=== PATIENT | female | born 1935 | race Caucasian/White ===

== ENCOUNTER → 2017-02-19 | Outpatient (CLI) | payer OTHER ==
[2017-02-19 16:49] LABS: BASO % 0.5 %; BASO ABS # 0.02 K/uL (0-0.2); COMPLETE YES; EOS % 1.9 %; HEMATOCRIT 40.1 % (37-47); IG% 0.2 %; LYMPH % 32.7 %; LYMPH ABS # 1.36 K/uL (1.2-3.4); MEAN CELL VOLUME 93.7 fL (80-100); MEAN CORPUSCULAR HEMOGLOBIN 31.5 pg (25-34); MEAN CORPUSCULAR HGB CONC 33.7 g/dl (32-36); MEAN PLATELET VOLUME 11.4 fL (7.4-10.4); MONO % 7.5 %; NEUT % 57.2 %; PLATELET COUNT 131 K/uL (130-400); RED BLOOD COUNT 4.28 M/uL (4.2-5.4); WHITE BLOOD COUNT 4.16 K/uL (4.8-10.8)
[2017-02-19 17:11] LABS: ALT/SGPT 11 U/L (12-78); AST/SGOT 13 U/L (15-37); BLOOD UREA NITROGEN 22 mg/dl (7-18); BUN/CREATININE RATIO 27.7 (10-20); CALCIUM 8.6 mg/dl (8.5-10.1); CARBON DIOXIDE 26 mmol/L (21-32); CHLORIDE 107 mmol/L (98-107); CREATININE 0.81 mg/dl (0.60-1.20); GLUCOSE 91 mg/dl (70-99); POTASSIUM 3.7 mmol/L (3.5-5.1); SODIUM 143 mmol/L (136-145)
[2017-02-19 17:21] LABS: ALB/GLOB RATIO 1.2 (0.9-2); ALKALINE PHOSPHATASE 65 U/L (45-117)
--- NOTE | 2017-02-25 08:47 | CODING QUERY MEDICAL NECESSITY ---
SUPPORTING DIAGNOSIS NEEDED A supporting diagnosis is required for the test/procedure performed on this patient in order for us to be reimbursed by the patient's insurance. Please provide a supporting diagnosis for the following test/procedure listed below next to the test name along with your signature. *If there is no additional diagnosis for this patient that would support the following test/procedure please document that below next to the test/procedure. Test(s)/Procedure(s) that require a supporting diagnosis: * VITAMIN D, 25-HYDROXY DIAGNOSIS: Provider Signature: Date: Thank you Petra Fuller [employer] Once completed, please kindly fax back to [phone] For questions please call [phone]
== END | disposition home or self-care (01) ==
LOC: C.LABBC 12:37
PROVIDERS: ATTEND Internal Medicine
DX: E03.9 Hypothyroidism, unspecified (principal); E55.9 Vitamin D deficiency, unspecified

== ENCOUNTER 2018-10-14 23:16 | Inpatient (IN) ==
[2018-10-15 00:02] LABS: Basophils # (auto) 0.01 K/uL (0-0.2); Basophils % (auto) 0.2 %; Eosinophils # (auto) 0.05 K/uL (0-0.5); Eosinophils % (auto) 0.8 %; Hematocrit (blood only) 36.8 % (37-47); Hemoglobin 12.8 g/dL (12.0-16.0); Immature Granulocytes # (auto) 0.01 K/uL (0.00-0.02); Immature Granulocytes % (auto) 0.2 %; Mean Corpuscular Hgb Conc 34.8 g/dL (32-36); Mean Corpuscular Volume 90.2 fL (80-100); Mean Platelet Volume 10.8 fL (7.4-10.4); Monocytes # (auto) 0.82 K/uL (0.11-0.59); Monocytes % (auto) 13.5 %; Neutrophils % (auto) 62.3 %; Platelet Count 117 K/uL (130-400); RDW Coefficient of Variation 13.1 % (11.5-14.5); RDW Standard Deviation 43.2 fL (36.4-46.3); Red Blood Count 4.08 M/uL (4.2-5.4); White Blood Count 6.09 K/uL (4.8-10.8)
[2018-10-15 00:09] LABS: INR 1.1 (0.9-1.1); Prothrombin Time 10.7 Seconds (9.0-12.0)
[2018-10-15 00:19] LABS: BUN Creatinine Ratio 26.3 (10-20); Calcium 8.7 mg/dl (8.5-10.1); Creatinine Clr Calc Pharmacy 33.3 ml/min; Est GFR (African American) 66.7; Est GFR (Non-African American) 57.6; Potassium 3.7 mmol/L (3.5-5.1)
[2018-10-15] MEDS ORDERED: Heparin IV Standard *NO* Bolus IV ONE ×2 (01:41→04:29)
[2018-10-15] MEDS ORDERED: SODIUM CHLORIDE 0.9% 500 ML IV ONE (01:41)
[2018-10-15] MEDS ORDERED: HEPARIN STANDARD DEXTROSE 25,000 UNITS/500 ML IV SCH (01:49)
[2018-10-15] MEDS ORDERED: HEPARIN 25000 UNIT/500 ML D5W IV ONE (01:49)
--- NOTE | 2018-10-15 02:15 | History & Physical Report ---
Date of Service October 15, 2018 Assessment & Plan (1) DVT (deep venous thrombosis): [facility] 83yo F [facility] parkinson's and hypothyroid presents with extensive LLE DVT DVT: -Heparin drip started -Consult vascular surgery -NPO Parkinson disease -Continue home meds Hypothyroid -Cont home meds Constipation -close monitoring, last BM 2 days ago DVTP: heparin CODE: DNR Dispo: med/surg (2) Constipation: (3) Parkinson disease: (4) Hypothyroid: History of Present Illness Chief Complaint: DVT Primary Care Provider: Carlito Plummer MD Pt is a [facility] 83yoF [facility] parkinson's (2007) and hypothyroidism, who presents with 2 day h/o Left leg discomfort. Due to her parkinson's she spends most of her day in a recliner, however does move about the house with a walker. She noted when standing on her leg it was becoming uncomfortable, swollen, and red. She denies pain. She and family note her parkinson's has been worsening over the past several months, but she has never fallen. She lives adjacent to her son 's house; they are her main source of support. She reports that she has lost weight since her diagnosis but cannot quantify how much. She does state she probably doesn't eat well and family corroborate most of her intake is frozen meals that she heats in the microwave. Follows closely with Dr. Blanca of neurology. In ER, it was noted that she had extensive LLE DVT. She was started on a heparin drip. Allergies Allergy/AdvReac Type Severity Reaction Status Date / Time No Known Allergies Allergy Verified 10/15/18 00:57 Home Medications Home Medications Medication Instructions Recorded Confirmed Type buspirone 5 mg PO BID PRN 09/08/18 10/15/18 History cholecalciferol (vitamin D3) 1 tab PO DAILYBB 09/08/18 10/15/18 History [Vitamin D3] cyanocobalamin (vitamin B-12) 1,000 mcg PO DAILY 09/08/18 10/15/18 History [Vitamin B-12] docusate sodium [Stool Softener] 100 mg PO HS 09/08/18 10/15/18 History levothyroxine 50 mcg PO QAM 09/08/18 10/15/18 History bromfenac 1 drp OPR DAILY 10/15/18 10/15/18 History bbgmyllww-tjqiddpb-ajylwzoybc 1 tab PO QID 10/15/18 10/15/18 History prednisolone acetate 1 drp OPR DAILY 10/15/18 10/15/18 History enoxaparin [Lovenox] 80 mg SQ DAILY #8 ml 10/16/18 Rx warfarin [Coumadin] 5 mg PO DAILY #30 tab 10/16/18 Rx Past Med/Surg History Medical History Parkinson disease Hypothyroidism Anxiety Nausea and vomiting after administration of anesthetic agent WITH HYSTERECTOMY Surgical History History of hysterectomy History of cataract surgery LEFT History of appendectomy Family History Other Family history non-contributory Social History Current Living Situation: Alone Current Living Situation Comment: APARTMENT ATTACHED TO SON HOME Other Information That Helps Us Care for You: No Feels Safe at Home: Yes Safety Concerns: Feels Safe At This Time Smoking Status: Never smoker Second Hand Exposure: No Hx Alcohol Use: No Hx Substance Use: No Beliefs That Will Affect Care: None Preferred Language: Beninese Review of Systems All systems reviewed & are unremarkable except as noted in HPI & below Constitutional: no fever, no body aches and no weakness Respiratory: no cough Cardiovascular: no chest pain Gastrointestinal: + constipation Musculoskeletal: + limited range of motion Integumentary: + lesions (on face) Neurologic: + generalized weakness, + tremor(s) and + abnormal movements Physical Exam 2 Vital Signs (Past 24 Hours): Last Vital Signs Temp 36.8 C 10/14/18 23:19 Pulse 78 10/15/18 00:45 Resp 16 10/15/18 00:45 BP 116/68 10/15/18 00:45 Pulse Ox 96 10/15/18 00:45 Constitutional: WD/WN, vitals as above average body habitus Eyes: PERRL, conjunctivae normal, anicteric sclerae (h/o cataracts ) ENMT: external ear and nose normal, oropharynx normal lesion on nose, chronic Neck: normal visual inspection Respiratory: normal respiratory effort, lungs clear to auscultation Cardiovascular: Rate/Rhythm: regular rate and regular rhythm Extremities: + edema (LLE) Gastrointestinal (Abdomen): normal bowel sounds, soft, nontender, no hepatosplenomegaly Skin: + lesion (noted on nose) Neurologic: PERRL, EOMI, accommodation nl, no face palsy, no dysarthria moves all extremities (no rigidity noted in upper extremities) Motor/Sensory : + tremor (of RLE) Psychiatric: Orientation: alert and oriented x 3 Affect: euthymic affect Insight: good insight Results & Data Laboratory Results 10/14/18 10/14/18 10/14/18 Range/Units 23:50 23:50 23:50 WBC 6.09 (4.8-10.8) K/uL RBC 4.08 L (4.2-5.4) M/uL Hgb 12.8 (12.0-16.0) g/dL Hct 36.8 L (37-47) % MCV 90.2 (80-100) fL MCH 31.4 (25-34) pg MCHC 34.8 (32-36) g/dL RDW Std Deviation 43.2 (36.4-46.3) fL RDW Coeff of Isaias 13.1 (11.5-14.5) % Plt Count 117 L (130-400) K/uL MPV 10.8 H (7.4-10.4) fL Immature Gran % (Auto) 0.2 % Neut % (Auto) 62.3 % Lymph % (Auto) 23.0 % Conway % (Auto) 13.5 % Eos % (Auto) 0.8 % Baso % (Auto) 0.2 % Immature Gran # (Auto) 0.01 (0.00-0.02) K/uL Neut # (Auto) 3.80 (1.4-6.5) K/uL Lymph # (Auto) 1.40 (1.2-3.4) K/uL Conway # (Auto) 0.82 H (0.11-0.59) K/uL Eos # (Auto) 0.05 (0-0.5) K/uL Baso # (Auto) 0.01 (0-0.2) K/uL PT 10.7 (9.0-12.0) Seconds INR 1.1 (0.9-1.1) Sodium 138 (136-145) mmol/L Potassium 3.7 (3.5-5.1) mmol/L Chloride 106 (98-107) mmol/L Carbon Dioxide 26 (21-32) mmol/L Anion Gap 6.0 (3-11) BUN 24 H (7-18) mg/dl Creatinine 0.92 (0.6-1.2) mg/dl Est Cr Clr Drug Dosing 33.3 ml/min Est GFR ( Amer) 66.7 Est GFR (Non-Af Amer) 57.6 BUN/Creatinine Ratio 26.3 H (10-20) Glucose 110 H (70-99) mg/dl Calcium 8.7 (8.5-10.1) mg/dl Medications Administered Current Inpatient Medications Heparin Sodium/Dextrose (Heparin Sodium/Dextrose) 25,000 units in 500 mls @ 18 mls/hr IV .Q24H [facility]; Protocol Stop: 11/14/18 01:48 Last Admin: 10/15/18 02:15 Dose: 900 units/hr, 18 mls/hr Code Status & VTE Plan Code Status DNR VTE Prophylaxis Plan VTE Prophylaxis will be ordered: Yes Supervising Physician Co-Signing Physician Notes Patient seen and examined, chart reviewed, case discussed with Dr. Newman and I agree with her assessment and plan as above. Briefly, patient is an 83yo C female with history of PD, gait instability, uses a walker for ambulation presenting with acute extensive DVT of LLE. Denies CP/SOB/dizziness/Syncope On exam she is afebrile, hemodynamically stable, NAD Gen: nontoxic HEENT: NC/AT, PERRL, MMM, neck supple Heart: +S1/S2, regular, no m/r/g Lungs: CTA anteriorly Abd: +BS, soft, NT/ND Ext: warmth, redness and swelling of LLE. sensation intact. 2+ pulses Labs and images reviewed. Assessment/Plan: Heparin gtt for now. Will have patient evaluated by Vascular Surgery tomorrow to comment if thrombectomy is appropriate in this patient. There is some risk for falls making anticoagulation risky. Remainder of plan as above Resident Activity Tracking Resident Involvement: Resident Care Provided Care Provided: [facility] Medicine _ (1) DVT (deep venous thrombosis) Affected thrombotic vein of extremity: unspecified vein of extremity Chronicity: acute DVT location: lower extremity Laterality: left Qualified Code(s): I82.402 - Acute embolism and thrombosis of unspecified deep veins of left lower extremity
[2018-10-15] MEDS ORDERED: POLYETHYLENE (MIRALAX) 17 GM PACK PO PRN (04:29)
[2018-10-15] MEDS ORDERED: ONDANSETRON INJ 2 MG/ML 2 ML VIAL IV PRN (04:29)
[2018-10-15] MEDS ORDERED: DOCUSATE SODIUM 100 MG CAP PO PRN (04:29)
[2018-10-15] MEDS ORDERED: ACETAMINOPHEN 325 MG TAB PO PRN (04:29)
--- NOTE | 2018-10-15 05:21 | Emergency Department Note ---
Entered by Brenda Garrison acting as a scribe for History of Present Illness General Chief complaint: Infection Stated complaint: LEFT LEG CELLULITIS Time Seen by Provider: 10/14/18 23:26 Source: patient and family (daughter) History of Present Illness Onset (ago): hour(s) (this evening) Location: lower extremity (left) Pain Consistency: + constant Maximum Pain Intensity: 0 Current Pain Intensity: 0 Quality: + other (swelling) Exacerbated By: + other (standing) Associated symptoms: + denies other symptoms (abdominal pain, difficulty urinating, change in activity level, recent trauma, and new constipation) and + other (recent weight loss); no chest pain, no nausea/vomiting and no shortness of breath The patient is an 83 year old female who presents to the Emergency Room with complaints of left lower extremity swelling that she noticed this evening. She states that the standing worsens the symptoms, noting that she feels pain in her LLE when standing for an extended period of time. The patient complains of a recent 8 pound weight loss, stating that she has not been attempting to lose weight. The patient denies any pain. She denies any CP, SOB, nausea/vomiting, abdominal pain, difficulty urinating, change in activity level, recent trauma, and new constipation. The patient's daughter, at bedside, notes that the patient has been fidgeting more the past few days. The daughter reports that the patient has an increase in Carbidopa-levadopa 2 months ago. The patient reports that she normally uses a walker to ambulate, and she denies any recent travel. She states that she has blood work drawn by her PCP in the past few weeks, because she has been feeling tired. The patient notes that the only abnormality was a low Vitamin D level. The patient's daughter reports that she has a history of Parkinson's. Home Medications Home Medications Medication Instructions Recorded Confirmed Type buspirone 5 mg PO BID PRN 09/08/18 10/15/18 History cholecalciferol (vitamin D3) 1 tab PO DAILYBB 09/08/18 10/15/18 History [Vitamin D3] cyanocobalamin (vitamin B-12) 1,000 mcg PO DAILY 09/08/18 10/15/18 History [Vitamin B-12] docusate sodium [Stool Softener] 100 mg PO HS 09/08/18 10/15/18 History levothyroxine 50 mcg PO QAM 09/08/18 10/15/18 History bromfenac 1 drp OPR DAILY 10/15/18 10/15/18 History duxmfrlkf-vignyqwx-wmuniejpkb 1 tab PO QID 10/15/18 10/15/18 History prednisolone acetate 1 drp OPR DAILY 10/15/18 10/15/18 History Allergies Allergy/AdvReac Type Severity Reaction Status Date / Time No Known Allergies Allergy Verified 10/15/18 00:57 Past Med/Surg History Medical History Anxiety Hypothyroidism Nausea and vomiting after administration of anesthetic agent WITH HYSTERECTOMY Parkinson disease Surgical History History of appendectomy History of cataract surgery LEFT History of hysterectomy Family History Other Family history non-contributory Social History Current Living Situation: Alone Feels Safe at Home: Yes Smoking Status: Never smoker Second Hand Exposure: No Hx Alcohol Use: No Hx Substance Use: No Beliefs That Will Affect Care: None Preferred Language: Portuguese Review of Systems See HPI for pertinent positives & negatives. and A total of 10 systems reviewed and were otherwise negative Physical Exam Vital Signs Vital Signs - 24 hr 10/14/18 23:19 10/15/18 00:45 10/15/18 02:18 Temperature 36.8 C Temperature Source Oral Sepsis Recent Fever Within 48 Hours No Sepsis Action Taken by Nursing No Action Required Pulse Rate 93 H Pulse Rate [Left Finger] 78 75 Respiratory Rate 18 16 16 Respiratory Effort / Characteristics Non-Labored Spontaneous Non-Labored Spontaneous Respiratory Depth Normal Normal Respiratory Pattern Regular Regular Blood Pressure 121/84 Blood Pressure [Right Arm] 116/68 128/77 Blood Pressure Mean 96 Blood Pressure Mean [Right Arm] 84 94 Blood Pressure Position Sitting Blood Pressure Position [Right Arm] Lying Semi-fowlers Pulse Oximetry 92 96 95 Oxygen Delivery Method Room Air Room Air Room Air 10/15/18 03:11 10/15/18 03:30 Temperature Temperature Source Sepsis Recent Fever Within 48 Hours Sepsis Action Taken by Nursing Pulse Rate 72 Pulse Rate [Left Finger] 72 Respiratory Rate 18 18 Respiratory Effort / Characteristics Respiratory Depth Respiratory Pattern Blood Pressure 153/80 H Blood Pressure [Right Arm] 153/80 H Blood Pressure Mean Blood Pressure Mean [Right Arm] 104 Blood Pressure Position Blood Pressure Position [Right Arm] Semi-fowlers Pulse Oximetry 97 97 Oxygen Delivery Method Room Air Room Air General: Parkinsonian movement, appears comfortable. HEENT: Head - normocephalic and atraumatic Pupils are equal, round, and reactive to light. Extraocular eye muscles are intact, and sclera are anicteric. Nose - moist nasal mucosa without discharge. Mouth - moist buccal mucosa. Oropharynx is nonerythematous and there is no tonsillar exudate or edema noted. Neck: Supple; no JVD, nuchal rigidity, or cervical lymphadenopathy. Heart: Regular rate and rhythm. There is a normal S1 and S2 with no murmurs, clicks, or gallops appreciated. Lungs: Clear to auscultation bilaterally with no wheezes, rales, or rhonchi. Abdomen: Soft, completely nontender, nondistended, with good bowel sounds. There are no palpable pulsatile masses or hepatosplenomegaly. There is no guarding, rigidity, or rebound noted. Extremities: No evidence of cyanosis or clubbing There are easily palpable peripheral pulses. There is edema and erythema to the entire left lower extremity. Normal distal pulses. Good capillary refill to her toes. Her feet are warm. Skin: warm and dry with good turgor and no rashes. Course 2330: Past medical records reviewed. The patient was evaluated in room B11B, and a complete history and physical examination were performed. An IV lock was initiated and labs were drawn as above. 0140: I spoke with the family and the patient about her results. They agreed with the treatment plan. 0141: NSS 500 mls @ 999 mls/hr IV, Heparin drip 0143: I spoke with Dr. Chauhan, [facility] hospitalist, about the patient's case. She will further evaluate the patient. Consultations Consultation #1: I spoke with Dr. Chauhan, [facility] hospitalist, about the patient's case. She will further evaluate the patient. Time: 01:43 Administered Medications Discontinued Medications Heparin Sodium/Dextrose () 1 ea IV ONE ONE; Protocol Stop: 10/15/18 01:42 Last Admin: 10/15/18 02:47 Dose: Not Given Heparin Sodium/Dextrose (Heparin Sodium/Dextrose) Confirm Administered Dose 25, 000 units IV .STK-MED ONE Stop: 10/15/18 01:50 Last Admin: 10/15/18 01:56 Dose: Not Given Sodium Chloride (Nss) 500 mls @ 999 mls/hr IV .Q31M ONE Stop: 10/15/18 02:11 Last Infusion: 10/15/18 02:47 Dose: 0 mls/hr Admin: 10/15/18 02:15 Dose: 999 mls/hr Heparin Sodium/Dextrose (Heparin Sodium/Dextrose) 25,000 units in 500 mls @ 18 mls/hr IV .Q24H [facility]; Protocol Stop: 11/14/18 01:48 Last Admin: 10/15/18 02:15 Dose: 900 units/hr, 18 mls/hr Medical Decision Making Differential Diagnosis The differential diagnosis includes: DVT, arterial clot, and cellulitis. Medical Records Attestation: I reviewed the patient's medical records. Home Medications Current Medication List: was personally reviewed by me Laboratory Data Attestation: I reviewed the patient's lab results. Result diagrams: 10/14/18 23:50 10/14/18 23:50 Lab Results 10/14/18 10/14/18 10/14/18 Range/Units 23:50 23:50 23:50 WBC 6.09 (4.8-10.8) K/uL RBC 4.08 L (4.2-5.4) M/uL Hgb 12.8 (12.0-16.0) g/dL Hct 36.8 L (37-47) % MCV 90.2 (80-100) fL MCH 31.4 (25-34) pg MCHC 34.8 (32-36) g/dL RDW Std Deviation 43.2 (36.4-46.3) fL RDW Coeff of Isaias 13.1 (11.5-14.5) % Plt Count 117 L (130-400) K/uL MPV 10.8 H (7.4-10.4) fL Immature Gran % (Auto) 0.2 % Neut % (Auto) 62.3 % Lymph % (Auto) 23.0 % Kidder % (Auto) 13.5 % Eos % (Auto) 0.8 % Baso % (Auto) 0.2 % Immature Gran # (Auto) 0.01 (0.00-0.02) K/uL Neut # (Auto) 3.80 (1.4-6.5) K/uL Lymph # (Auto) 1.40 (1.2-3.4) K/uL Kidder # (Auto) 0.82 H (0.11-0.59) K/uL Eos # (Auto) 0.05 (0-0.5) K/uL Baso # (Auto) 0.01 (0-0.2) K/uL PT 10.7 (9.0-12.0) Seconds INR 1.1 (0.9-1.1) Sodium 138 (136-145) mmol/L Potassium 3.7 (3.5-5.1) mmol/L Chloride 106 (98-107) mmol/L Carbon Dioxide 26 (21-32) mmol/L Anion Gap 6.0 (3-11) BUN 24 H (7-18) mg/dl Creatinine 0.92 (0.6-1.2) mg/dl Est Cr Clr Drug Dosing 33.3 ml/min Est GFR ( Amer) 66.7 Est GFR (Non-Af Amer) 57.6 BUN/Creatinine Ratio 26.3 H (10-20) Glucose 110 H (70-99) mg/dl Calcium 8.7 (8.5-10.1) mg/dl Imaging Data Radiologist's Impression: Radiology results as stated below per my review and the radiologist's interpretation: US VENOUS LEFT LOWER EXTREMITY: DVT in the common femoral and distal superficial femoral veins. Greater saphenous venous thrombosis is also seen. Radiologist: Seth Beltran MD Study ready at 00:41 and initial results transmitted at 00:42. Blood Pressure Blood Pressure Findings: Normal blood pressure Blood Pressure Disposition: did not require urgent referral MDM Narrative The patient is an 83 year old female who presents to the Emergency Room with complaints of left lower extremity swelling that she noticed this evening. The patient has obvious left lower extremity edema and erythema about the whole leg. There are no signs of cellulitis. There is no leukocytosis or fever. Ultrasound shows extensive thrombus in that left leg. I am concerned about placing the patient on outpatient anticoagulation as she has Parkinson's disease that is currently not well controlled and she is at high risk for fall. I also have concerned about the possibility of an undiagnosed cancer as the patient describes unexplained weight loss over the past couple of months and now has developed significant clot in her left leg. I discussed these thoughts with the patient, family and admitting physician. The patient was started on a heparin drip. Impression & Plan DVT (deep venous thrombosis) Discharge Plan Visit Data *Final* Discharge Date/Time: 10/15/18 03:30 Chief Complaint: Infection Stated Complaint: LEFT LEG CELLULITIS ED Provider: Diana Atkins Discharge Problem: DVT (deep venous thrombosis) Patient Disposition: Being Evaluated by Hospitalist Discharge Instructions Interventions: ED Discharge Assessment Last Done: 10/15/18 03:30 The scribe's documentation has been prepared under my direction and personally reviewed by me in its entirety. I confirm that the note above accurately reflects all work, treatment, procedures, and medical decision making performed by me.
--- NOTE | 2018-10-15 07:06 | Ultrasound Report ---
ULTRASOUND LEFT LOWER EXTREMITY VENOUS CLINICAL HISTORY: Left leg pain and swelling. COMPARISON STUDY: No priors. TECHNIQUE: Real-time, grayscale, and color Doppler sonography of the deep veins of the left lower ext remity was performed from the inguinal crease to the calf. Compression and augmentation were utilized . FINDINGS: There is occlusive deep venous thrombosis identified in the left common femoral vein. Nearl y occlusive deep venous thrombosis is identified in the distal superficial femoral vein. Occlusive venegas perficial venous thrombus is noted within the greater saphenous vein. The proximal and mid portions o f the superficial femoral vein and popliteal vein are patent an normally compressible. The profunda f emoris vein at the junction with the common femoral vein is clear. The visualized calf veins are stanley nt. IMPRESSION: 1. There is occlusive deep venous thrombosis identified within the left common femoral vein. 2. There is nearly occlusive deep venous thrombosis seen in the distal superficial femoral vein. 3. Occlusive superficial venous thrombus is identified within the greater saphenous vein. Electronically signed by: Jed Knowles M.D. 10/15/2018 7:04 AM
[2018-10-15] MEDS: HEPARIN STANDARD DEXTROSE 25,000 UNITS/500 ML IV SCH (07:18)
[2018-10-15] MEDS: BROMFENAC~ORDER AWAITING ACTION SCH ×3 (07:19→23:37)
[2018-10-15] MEDS: CARBIDOPA/LEVODOPA 25/100MG TAB PO SCH ×4 (07:21→21:02)
[2018-10-15] MEDS: CYANOCOBALAMIN 500 MCG TABLET (VITAMIN B-12) PO SCH (07:21)
[2018-10-15] MEDS: ENTACAPONE 200 MG TAB PO SCH ×4 (07:21→21:02)
[2018-10-15] MEDS: CHOLECALCIFEROL (VITAMIN D) 400 UNITS TABLET PO SCH (07:22)
[2018-10-15] MEDS: LEVOTHYROXINE SODIUM 50 MCG TABLET PO SCH (07:22)
[2018-10-15 08:41] LABS: Partial Thromboplastin Ratio 1.9
[2018-10-15 08:51] LABS: Partial Thromboplastin Time 50.6 Seconds (21.0-31.0)
[2018-10-15] MEDS ORDERED: prednisoLONE acetate 1% OP SUSP 5 ML BTL OPR SCH (09:00)
[2018-10-15] MEDS ORDERED: D5W AND NSS 1,000 ML IV SCH (14:30)
[2018-10-15] MEDS ORDERED: Nursing to Pharmacy Communication ONE (17:14)
--- NOTE | 2018-10-15 18:19 | Family Medicine Progress Note ---
Date of Service October 15, 2018 Assessment & Plan (1) DVT (deep venous thrombosis): 83-year-old female with a past medical history of Parkinson's and hypothyroidism presented with left lower extremity swelling and pain. Patient' s Parkinson has been worsening and is limited activity��endorses a sedentary lifestyle. Acute left leg DVT provoked by sedentary lifestyle in the setting of Parkinson' s disease �Ultrasound of left lower extremity showed occlusive DVT in the left common femoral vein, nearly occlusive DVT and distal superficial femoral vein and occlusive superficial venous thrombus within the greater saphenous vein �Vascular surgery consulted, not a surgical candidate for thrombectomy. Discussed filter placement if high fall risk. Patient though at increase fall risk but is very careful and has not had any fall in 8yrs. recommend anticoagulation �We will continue patient on IV heparin and will arrange oral anticoagulation and Lovenox bridge tomorrow with case management Parkinson's disease �Continue Sinemet Hypothyroidism �Continue Synthroid FEN �Starting the patient on a regular diet tonight DVT prophylaxis �Heparin Disposition; continue IV heparin with plan to transition the patient to oral coagulation with a Lovenox bridge. Will be started on warfarin with a Lovenox bridge; 1.5 mg/kg, daily dosing. Will arrange with case management tomorrow. Plan on discharging the patient tomorrow (2) Hypothyroid: (3) Parkinson disease: Supervising Physician Co-Signing Physician Notes Resident Physician Supervision Note: I independently interviewed and examined the patient and verified the corral history and physical, reviewed labs and image studies, discussed the case with the resident Dr. Boyd and agree with the findings and care plan. Subjective 83-year-old female with past medical history of Parkinson's, hypothyroidism presented to the hospital with 2 days of left leg pain and swelling. She is doing well this morning. She denies any acute issues at this time. Constitutional: no fever, no chills and no fatigue Respiratory: no cough, no chest congestion and no dyspnea Cardiovascular: no chest pain, no dyspnea and no palpitations Gastrointestinal: no abdominal pain, no nausea and no vomiting Physical Exam 2 Vital Signs (Past 24 Hours): Last Vital Signs Temp 36.4 C L 10/15/18 15:10 Pulse 69 10/15/18 15:10 Resp 18 10/15/18 15:10 BP 130/75 10/15/18 15:10 Pulse Ox 96 10/15/18 15:10 Constitutional: WD/WN, vitals as above Eyes: PERRL, conjunctivae normal, anicteric sclerae ENMT: external ear and nose normal, oropharynx normal Neck: trachea midline, no thyromegaly Respiratory: normal respiratory effort, lungs clear to auscultation Cardiovascular: RRR, no murmur, no edema Gastrointestinal (Abdomen): normal bowel sounds, soft, nontender, no hepatosplenomegaly Musculoskeletal: Swelling of the left lower extremity, no erythema, no deformity, no calf tenderness Results & Data Laboratory Results Laboratory Last Values WBC 6.09 K/uL (4.8-10.8) 10/14/18 23:50 RBC 4.08 M/uL (4.2-5.4) L 10/14/18 23:50 Hgb 12.8 g/dL (12.0-16.0) 10/14/18 23:50 Hct 36.8 % (37-47) L 10/14/18 23:50 MCV 90.2 fL (80-100) 10/14/18 23:50 MCH 31.4 pg (25-34) 10/14/18 23:50 MCHC 34.8 g/dL (32-36) 10/14/18 23:50 RDW Std Deviation 43.2 fL (36.4-46.3) 10/14/18 23:50 RDW Coeff of Isaias 13.1 % (11.5-14.5) 10/14/18 23:50 Plt Count 117 K/uL (130-400) L 10/14/18 23:50 MPV 10.8 fL (7.4-10.4) H 10/14/18 23:50 Immature Gran % (Auto) 0.2 % 10/14/18 23:50 Neut % (Auto) 62.3 % 10/14/18 23:50 Lymph % (Auto) 23.0 % 10/14/18 23:50 [place] % (Auto) 13.5 % 10/14/18 23:50 Eos % (Auto) 0.8 % 10/14/18 23:50 Baso % (Auto) 0.2 % 10/14/18 23:50 Immature Gran # (Auto) 0.01 K/uL (0.00-0.02) 10/14/18 23:50 Neut # (Auto) 3.80 K/uL (1.4-6.5) 10/14/18 23:50 Lymph # (Auto) 1.40 K/uL (1.2-3.4) 10/14/18 23:50 [place] # (Auto) 0.82 K/uL (0.11-0.59) H 10/14/18 23:50 Eos # (Auto) 0.05 K/uL (0-0.5) 10/14/18 23:50 Baso # (Auto) 0.01 K/uL (0-0.2) 10/14/18 23:50 PT 10.7 Seconds (9.0-12.0) 10/14/18 23:50 INR 1.1 (0.9-1.1) 10/14/18 23:50 APTT 50.6 Seconds (21.0-31.0) H* 10/15/18 08:09 PTT Ratio 1.9 10/15/18 08:09 Sodium 138 mmol/L (136-145) 10/14/18 23:50 Potassium 3.7 mmol/L (3.5-5.1) 10/14/18 23:50 Chloride 106 mmol/L (98-107) 10/14/18 23:50 Carbon Dioxide 26 mmol/L (21-32) 10/14/18 23:50 Anion Gap 6.0 (3-11) 10/14/18 23:50 BUN 24 mg/dl (7-18) H 10/14/18 23:50 Creatinine 0.92 mg/dl (0.6-1.2) 10/14/18 23:50 Est Cr Clr Drug Dosing 33.3 ml/min 10/14/18 23:50 Est GFR ( Amer) 66.7 10/14/18 23:50 Est GFR (Non-Af Amer) 57.6 10/14/18 23:50 BUN/Creatinine Ratio 26.3 (10-20) H 10/14/18 23:50 Glucose 110 mg/dl (70-99) H 10/14/18 23:50 Calcium 8.7 mg/dl (8.5-10.1) 10/14/18 23:50 Resident Activity Tracking Resident Involvement: Resident Care Provided Care Provided: [facility] _ (1) DVT (deep venous thrombosis) Affected thrombotic vein of extremity: unspecified vein of extremity Chronicity: acute DVT location: lower extremity Laterality: left Qualified Code(s): I82.402 - Acute embolism and thrombosis of unspecified deep veins of left lower extremity
[2018-10-15] MEDS: BROMFENAC 0.09% OP SCH (19:06)
--- NOTE | 2018-10-15 20:36 | Consultation ---
Date of Consultation October 15, 2018 Assessment & Plan (1) DVT (deep venous thrombosis): At this point, she does not have an indication for a filter insertion. She is not a fall risk presently. Would recommend placing her on oral anticoagulation for 3 to 6 months. If she does develop a tendency for falls then a filter can be placed. Thank you very much for letting us participate in the care of this patient. Affected thrombotic vein of extremity: unspecified vein of extremity Chronicity: acute DVT location: lower extremity Laterality: left Qualified Code(s): I82.402 - Acute embolism and thrombosis of unspecified deep veins of left lower extremity History of Present Illness Reason for Consultation: Left lower extermity DVT Attending Physician: Radha Farmer MD History of Present Illness This is an 83 year old female with parkonsonism who presented with a 3 day history of left leg pain and redness and edema. She was found to have an acute DVT of the left lower extremity. She does have tremors. She sits in a wheelchair most of the day but does get around her home with a walker. She has not fallen in years. She claims she is very careful when she ambulates. Allergies Allergy/AdvReac Type Severity Reaction Status Date / Time No Known Allergies Allergy Verified 10/15/18 00:57 Home Medications Home Medications Medication Instructions Recorded Confirmed Type buspirone 5 mg PO BID PRN 09/08/18 10/15/18 History cholecalciferol (vitamin D3) 1 tab PO DAILYBB 09/08/18 10/15/18 History [Vitamin D3] cyanocobalamin (vitamin B-12) 1,000 mcg PO DAILY 09/08/18 10/15/18 History [Vitamin B-12] docusate sodium [Stool Softener] 100 mg PO HS 09/08/18 10/15/18 History levothyroxine 50 mcg PO QAM 09/08/18 10/15/18 History bromfenac 1 drp OPR DAILY 10/15/18 10/15/18 History uriwcjzyr-vujkgfgo-dkhdgttkjr 1 tab PO QID 10/15/18 10/15/18 History prednisolone acetate 1 drp OPR DAILY 10/15/18 10/15/18 History Patient History Medical History Parkinson disease Hypothyroidism Anxiety Nausea and vomiting after administration of anesthetic agent WITH HYSTERECTOMY Surgical History History of hysterectomy History of cataract surgery LEFT History of appendectomy Family History Other Family history non-contributory Social History Current Living Situation: Alone Current Living Situation Comment: APARTMENT ATTACHED TO SON HOME Other Information That Helps Us Care for You: No Feels Safe at Home: Yes Safety Concerns: Feels Safe At This Time Smoking Status: Never smoker Second Hand Exposure: No Hx Alcohol Use: No Hx Substance Use: No Beliefs That Will Affect Care: None Communication Ability: Effective Review of Systems Constitutional: no problem reported Respiratory: no problem reported Cardiovascular: + edema Gastrointestinal: no problem reported Musculoskeletal: + swelling and + limited range of motion; no problem reported Neurologic: + tremor(s); no problem reported Psychiatric: no problem reported Physical Exam 2 Vital Signs (Past 24 Hours): Last Vital Signs Temp 36.4 C L 10/15/18 15:10 Pulse 69 10/15/18 15:10 Resp 18 10/15/18 15:10 BP 130/75 10/15/18 15:10 Pulse Ox 96 10/15/18 15:10 Constitutional: well developed and well nourished Respiratory: normal respiratory effort, lungs clear to auscultation Cardiovascular: Rate/Rhythm: regular rate and regular rhythm Extremities: + edema (left leg) Gastrointestinal (Abdomen): Inspection/Auscultation: abdomen normal to inspection; abdomen not distended Percussion/Palpation: abdomen soft; abdomen nontender Musculoskeletal: Extremities: + limited ROM of extremities Neurologic: CN's II-XI intact bilaterally, moves all extremities and awake Motor/Sensory: + tremor
[2018-10-15] MEDS ORDERED: DOCUSATE SODIUM 100 MG CAP PO SCH (21:00)
[2018-10-15] MEDS: prednisoLONE acetate 1% OP SUSP 5 ML BTL OPR SCH (21:02)
[2018-10-16] MEDS: HEPARIN STANDARD DEXTROSE 25,000 UNITS/500 ML IV SCH (04:32)
[2018-10-16] MEDS: LEVOTHYROXINE SODIUM 50 MCG TABLET PO SCH (05:46)
[2018-10-16] MEDS: CHOLECALCIFEROL (VITAMIN D) 400 UNITS TABLET PO SCH (05:46)
[2018-10-16 06:11] LABS: Basophils # (auto) 0.01 K/uL (0-0.2); Basophils % (auto) 0.3 %; Eosinophils # (auto) 0.07 K/uL (0-0.5); Eosinophils % (auto) 2.4 %; Hematocrit (blood only) 35.3 % (37-47); Hemoglobin 11.9 g/dL (12.0-16.0); Immature Granulocytes # (auto) 0.01 K/uL (0.00-0.02); Immature Granulocytes % (auto) 0.3 %; Lymphocytes % (auto) 30.9 %; Mean Corpuscular Hgb Conc 33.7 g/dL (32-36); Mean Corpuscular Volume 91.2 fL (80-100); Mean Platelet Volume 11.2 fL (7.4-10.4); Monocytes # (auto) 0.32 K/uL (0.11-0.59); Neutrophils % (auto) 55.1 %; Platelet Count 104 K/uL (130-400); RDW Coefficient of Variation 13.2 % (11.5-14.5); RDW Standard Deviation 43.7 fL (36.4-46.3); Red Blood Count 3.87 M/uL (4.2-5.4); White Blood Count 2.91 K/uL (4.8-10.8)
[2018-10-16 06:36] LABS: Partial Thromboplastin Ratio 2.7
[2018-10-16 06:56] LABS: BUN Creatinine Ratio 21.7 (10-20); Calcium 8.2 mg/dl (8.5-10.1); Creatinine Clr Calc Pharmacy 43.1 ml/min; Est GFR (African American) 91.3; Est GFR (Non-African American) 78.8; Potassium 3.4 mmol/L (3.5-5.1)
[2018-10-16] MEDS: BROMFENAC~ORDER AWAITING ACTION SCH (07:20)
[2018-10-16] MEDS: prednisoLONE acetate 1% OP SUSP 5 ML BTL OPR SCH (07:22)
[2018-10-16] MEDS: BROMFENAC 0.09% OP SCH (07:22)
[2018-10-16] MEDS: CARBIDOPA/LEVODOPA 25/100MG TAB PO SCH (07:23)
[2018-10-16] MEDS: ENTACAPONE 200 MG TAB PO SCH (07:23)
[2018-10-16] MEDS: CYANOCOBALAMIN 500 MCG TABLET (VITAMIN B-12) PO SCH (07:23)
[2018-10-16] MEDS ORDERED: ENOXAPARIN 80 MG/0.8 ML SYR SQ SCH (09:00)
--- NOTE | 2018-10-16 20:03 | Discharge Summary ---
Date of Service October 16, 2018 Admission HPI Per Admitting Provider Pt is a pleasant 83yoF H parkinson's (2007) and hypothyroidism, who presents with 2 day h/o Left leg discomfort. Due to her parkinson's she spends most of her day in a recliner, however does move about the house with a walker. She noted when standing on her leg it was becoming uncomfortable, swollen, and red. She denies pain. She and family note her parkinson's has been worsening over the past several months, but she has never fallen. She lives adjacent to her son 's house; they are her main source of support. She reports that she has lost weight since her diagnosis but cannot quantify how much. She does state she probably doesn't eat well and family corroborate most of her intake is frozen meals that she heats in the microwave. Follows closely with Dr. Blanca of neurology. In ER, it was noted that she had extensive LLE DVT. She was started on a heparin drip. Admission Exam Per Admitting Provider Temp 36.8 C 10/14/18 23:19 Pulse 78 10/15/18 00:45 Resp 16 10/15/18 00:45 BP 116/68 10/15/18 00:45 Pulse Ox 96 10/15/18 00:45 Constitutional: WD/WN, vitals as above average body habitus Eyes: PERRL, conjunctivae normal, anicteric sclerae (h/o cataracts ) ENMT: external ear and nose normal, oropharynx normal lesion on nose, chronic Neck: normal visual inspection Respiratory: normal respiratory effort, lungs clear to auscultation Cardiovascular: Rate/Rhythm: regular rate and regular rhythm Extremities: + edema (LLE) Gastrointestinal (Abdomen): normal bowel sounds, soft, nontender, no hepatosplenomegaly Skin: + lesion (noted on nose) Neurologic: PERRL, EOMI, accommodation nl, no face palsy, no dysarthria moves all extremities (no rigidity noted in upper extremities) Motor/Sensory: + tremor (of RLE) Psychiatric: Orientation: alert and oriented x 3 Affect: euthymic affect Insight: good insight Principal Diagnosis DVT of left common femoral vein Discharge Exam Constitutional well developed, well nourished, + well hydrated, well groomed, cooperative and comfortable Eyes EOM intact bilaterally ENMT external ear and nose normal, oropharynx normal Neck neck supple, ROM intact Respiratory normal respiratory effort, lungs clear to auscultation Auscultation: no crackles, no rales and no wheezes Cardiovascular RRR, no murmur, no edema Heart Sounds: normal S1 and normal S2 Vessels: normal peripheral pulses Gastrointestinal (Abdomen) normal bowel sounds, soft, nontender, no hepatosplenomegaly Musculoskeletal moving all extremities involuntarily Skin no rashes, warm and dry Neurologic awake moving upper and lower extremities in asynchronous fashion Discharge Data Allergies Allergy/AdvReac Type Severity Reaction Status Date / Time No Known Allergies Allergy Verified 10/15/18 00:57 Consultations 10/15/18 01:41 ED Decision to Admit Stat 10/15/18 04:29 Consult Vascular Surgery Routine Ordered Studies 10/14/18 23:39 US venous doppler LE Stat Hospital Course (1) DVT (deep venous thrombosis): Yarelis Luna is an 83-year-old female with a past medical history of Parkinson's and hypothyroidism admitted to [facility] on 10/14/2018 for treatment and management of DVT found in left common femoral vein. Acute left lower leg DVT provoked by sedentary lifestyle in the setting of Parkinson's disease Ms. Luna received an ultrasound of left lower extremity on 10/14/18 which showed occlusive DVT in the left common femoral vein, nearly occlusive DVT of distal superficial femoral vein and occlusive superficial venous thrombus within the greater saphenous vein. Vascular surgery was consulted for evaluation of IVC filter placement and possible thrombectomy. Per Dr. uLgo she is not a surgical candidate for thrombectomy and IVC fliter was not placed because she is not a high fall risk. If she begins to have falls then IVC can be placed. Currently Ms. Luna is at increased fall risk but is very careful and has not had any fall in 8yrs. During admission she was treated with IV Heparin drip. Discussion was held regarding anticoagulation with Eliquis vs Coumadin and the decision was made to use Coumadin with Lovenox bridge. She was discharged home with Lovenox 80mg SQ daily and Warfarin 5mg PO daily. Other chronic conditions managed during the hospital were: Parkinson's Disease with evidence of increased motor dysfunction. Sinemet was continued during admission. Hypothyroid dysfunction was managed with home dose of Synthroid. During the admission she tolerated oral foods and liquids well. Ms. Luna voided regularly and had two bowel movements. She was discharged to home with family on 10/16/2018 in stable condition. Instructions were given on Lovenox administration and the patient is to f/u with PCP. (2) Hypothyroid: (3) Parkinson disease: Total Time Total Time Spent Total Time Spent (In Minutes): Total time spent > 35 minutes Discharge Plan Discharge Items Patient Disposition: Home - Self-Care Reason For Visit: DVT Discharge Diagnosis: Acute DVT Discharge Goals: Prevent disease Activity: Resume your previous activity Activity Comment: Avoid Fall Non-emergency contact: Primary Care Provider Call non-emergency contact if: you have any medication questions Diet: Regular Addtl Provider Instructions: You were admitted for clots in your legs and were treated with blood thinners. At home you will continue blood thinner - Lovenox which will be given until your coumadin is working. You will get frequent blood test to make sure your INR is in the correct range. Please stay consistent with the amount greens you eat in your diet. You will have to stay off of any other medication that increase your risk of bleeding like aspirin, ibuprofen, aleve, etc. Home nursing services are being arranged for you to help you will injections and blood draws. Please follow up with your family physician in one week. Prescriptions: New warfarin [Coumadin] 5 mg tablet 5 mg PO DAILY Qty: 30 RF: 0 enoxaparin [Lovenox] 80 mg/0.8 mL syringe 80 mg SQ DAILY Qty: 8 RF: 0 Continue bromfenac 0.09 % drops 1 drp OPR DAILY RF: 0 xoivmvhvj-eujkczap-jzpybdveft 50-200-200 mg tablet 1 tab PO QID RF: 0 prednisolone acetate 1 % drops,suspension 1 drp OPR DAILY RF: 0 buspirone 5 mg Tablet 5 mg PO BID PRN (Reason: Anxiety) RF: 0 cyanocobalamin (vitamin B-12) [Vitamin B-12] 1,000 mcg Tablet 1,000 mcg PO DAILY RF: 0 levothyroxine 50 mcg Tablet 50 mcg PO QAM RF: 0 docusate sodium [Stool Softener] 100 mg Capsule 100 mg PO HS RF: 0 cholecalciferol (vitamin D3) [Vitamin D3] 400 unit Tablet 1 tab PO DAILYBB RF: 0 Stand-Alone Forms: [facility] Discharge Orders: Discharge Order (Routine); Ordered 02/15/19 Ordered By: Radha Farmer Admission Data Admit Date/Time: 10/15/18 18:21 Attending Provider: Radha Farmer Admit Provider: Leena Chauhan Primary Care Provider: Carlito Plummer Other Providers: Leena Chauhan ; David Lugo Service: Medical Other Interventions: Discharge Summary Assessment (RN) Last Done: 10/16/18 09:26 DC Date/Time DO NOT enter until pt leaves facility: 10/16/18 10:50 Supervising Physician Co-Signing Physician Notes Resident Physician Supervision Note: I independently interviewed and examined the patient and verified the corral history and physical, reviewed labs and image studies, discussed the case with the resident Dr. Thomas and agree with the findings and care plan. Time spent in discharge 35 min
== END 2018-10-16 10:50 | disposition home health service (06) | DRG 301 ==
LOC: 4W 23:16 → ED 23:16 → SUATTDRO 10-15 01:56 → 4W 10-15 03:30
DX: R63.4 Abnormal weight loss; Z79.899 Other long term (current) drug therapy; E03.9 Hypothyroidism, unspecified; G20 Parkinson's disease; I82.812 Embolism and thrombosis of superficial veins of left lower extremity; K59.00 Constipation, unspecified; I82.412 Acute embolism and thrombosis of left femoral vein; Z66 Do not resuscitate

== ENCOUNTER 2019-05-02 20:33 | Observation (INO) ==
[2019-05-02] MEDS ORDERED: NALOXONE HCL 0.4 MG/1 ML VIAL/CARP IV STA (21:18)
[2019-05-02] MEDS ORDERED: SODIUM CHLORIDE 0.9% 1000ML 1,000 ML IV SCH (21:30)
[2019-05-02 21:36] LABS: Basophils # (auto) 0.01 K/uL (0-0.2); Basophils % (auto) 0.3 %; Eosinophils # (auto) 0.02 K/uL (0-0.5); Eosinophils % (auto) 0.6 %; Hematocrit (blood only) 37.9 % (37-47); Hemoglobin 13.4 g/dL (12.0-16.0); Lymphocytes # (auto) 0.91 K/uL (1.2-3.4); Lymphocytes % (auto) 26.5 %; Mean Corpuscular Hgb Conc 35.4 g/dL (32-36); Mean Corpuscular Volume 92.4 fL (80-100); Mean Platelet Volume 11.2 fL (7.4-10.4); Monocytes # (auto) 0.31 K/uL (0.11-0.59); Neutrophils # (auto) 2.18 K/uL (1.4-6.5); Neutrophils % (auto) 63.6 %; Platelet Count 145 K/uL (130-400); RDW Coefficient of Variation 14.1 % (11.5-14.5); RDW Standard Deviation 47.7 fL (36.4-46.3); White Blood Count 3.43 K/uL (4.8-10.8)
[2019-05-02] MEDS ORDERED: SODIUM CHLORIDE 0.9% 1000ML 500 ML IV ONE (21:42)
[2019-05-02 21:52] LABS: Alanine Aminotransferase 9 U/L (12-78); Albumin Level 3.7 gm/dl (3.4-5.0); Aspartate Aminotransferase 14 U/L (15-37); Blood Urea Nitrogen 14 mg/dl (7-18); Calcium 8.7 mg/dl (8.5-10.1); Carbon Dioxide 29 mmol/L (21-32); Chloride 105 mmol/L (98-107); Creatinine Clr Calc Pharmacy 40.5 ml/min; Est GFR (Non-African American) 59.5; Glucose 179 mg/dl (70-99); Magnesium 2.4 mg/dl (1.8-2.4); Potassium 3.9 mmol/L (3.5-5.1); Sodium 140 mmol/L (136-145)
[2019-05-02 22:02] LABS: Albumin Globulin Ratio 1.2 (0.9-2); Alkaline Phosphatase 51 U/L (45-117); Bilirubin,Total 0.6 mg/dl (0.2-1); Globulin 3.1 gm/dl (2.5-4.0); Total Protein 6.8 gm/dl (6.4-8.2); Troponin I < 0.015 ng/ml (0-0.045)
--- NOTE | 2019-05-02 22:20 | CT Scan Report ---
HEAD CT NONCONTRAST CT DOSE: 614.27 mGy.cm HISTORY: Altered mental status. TECHNIQUE: Multiaxial CT images of the head were performed without the use of intravenous contrast. A utomated exposure control was utilized for this study. A dose lowering technique was utilized adheri ng to the principles of ALARA. Comparison: None. Findings: The paranasal sinuses and mastoid air cells are clear. The calvarium and skull base are int act. There is no mass, hematoma, midline shift, acute infarct. White matter hypodensity is nonspecifi c but suggestive of microvascular ischemic change. The ventricles and sulci demonstrate mild age-rela edwin involutional changes. Impression: No acute intracranial abnormality. Atrophy and microvascular ischemic changes. Electronically signed by: Margarito Stack M.D. 05/02/2019 10:19 PM
[2019-05-02 22:46] LABS: Appearance Urine Clear (Clear); Bacteria Urine Automated 4+ (Negative); Bilirubin Urine Negative (Negative); Blood Urine Negative (Negative); Color Urine Yellow; Epithelial Cell Urine Auto >30 /lpf (0-5); Glucose Urine UA Negative (Negative); Ketones Urine Trace (Negative); Leukocyte Esterase Urine 1+ (Negative); Nitrite Urine Positive (Negative); Protein Urine Negative (Negative); RBC Urine Automated 0-4 /hpf (0-4); Specific Gravity Urine 1.018 (1.000-1.030); Urobilinogen Urine Negative (Negative)
--- NOTE | 2019-05-02 22:51 | XRay Report ---
XR chest 1V portable HISTORY: weakness COMPARISON: None. FINDINGS: No pneumothorax. The heart is mildly enlarged. There is mild central pulmonary vascular con gestion without overt edema. Small bibasilar densities. No definite pleural effusion. Low lung volume s. IMPRESSION: 1. Mild cardiomegaly with mild central pulmonary vascular congestion. 2. Low lung volumes with small bibasilar densities. This favors atelectasis. A pneumonia could also h ave a similar appearance. Electronically signed by: Margarito Stack M.D. 05/02/2019 10:49 PM
[2019-05-02 23:03] LABS: Cast Urine Automated 0 /lpf (0-5)
--- NOTE | 2019-05-02 23:32 | History & Physical Report ---
Date of Service May 02, 2019 Assessment & Plan (1) Altered mental status: Patient with somnolence after THC oil ingested. Also has had 2 weeks of progressive fatigue and weakness as well as poor p.o. intake. Differential to include UTI, dehydration, medication effect from THC or Parkinson's meds or combination of all. Electrolytes and TSH are within normal limits. CT of the head is negative for acute intracranial event. Patient is bradycardic. -Observation to medical floor -Delirium prevention strategies -Treat UTI -Avoid future use of Duy Leal oil -Consider neurology consult if patient's mental status fails to improve (2) Parkinson disease: Patient follows with Dr. Blanca. She is presently on carbidopa levodopa 4 times daily. Daughter states that her medications have been adjusting frequently. -Continue carbidopa levodopa at home dose -Consider neurology consult if mental status fails to improve Present on Admission?: Yes (3) UTI (urinary tract infection): Urinalysis suggestive of UTI. Patient afebrile, denies dysuria. Daughter reports that patient has had some increased urinary frequency. -Follow culture results -Ceftriaxone 1 g IV daily Present on Admission?: Yes (4) Dehydration: Patient appears clinically dry on exam. Daughter remarks that she has not been eating or drinking well for the past couple of weeks. Renal function near baseline. Patient administered 1500 mL of normal saline while in the ER. -Continue maintenance fluids on the floor, LR at 80 mL/h x 1 L -Repeat chemistry panel in a.m. Present on Admission?: Yes (5) Bradycardia: Patient with heart rate of 62 on arrival, presently at 51. She has 1 old EKG with heart rate in the low 60s. -Obtain EKG to make sure heart block not present Present on Admission?: Yes (6) Hypotension: Patient hypotensive on arrival now improved with IV fluids -Continue fluids as above FENLR at 80 mL/h x 1 L, electrodes within normal limits, n.p.o. for now, may advance diet to regular/bite sized as tolerated if mental status improves ProphylaxisLovenox 30 mg subcu every morning Codefull per discussion with daughter Dispositionobservation to medical floor Present on Admission?: Yes History of Present Illness Chief Complaint: Altered mental status Primary Care Provider: Carlito Plummer MD Yarelis Luna is an 84-year-old female with history of Parkinson's disease presenting with altered mental status. Patient is somnolent, unable to provide details of events. History obtained through chart review and discussion with patient's daughters. Daughter reports that the patient has been having increased fatigue and weakness over the last 2 weeks as well as poor appetite and p.o. intake. Last Friday she was told that she was dehydrated by her niece who is a nurse and instructed to drink more water. At 1630 this evening the patient took her evening dose of carbidopa levodopa. After which she felt that "her feet had Velcro" and were sticking to the floor. She was having difficulty rising from a chair. At 18:00 the patient's daughter gave her some CBD oil as well as a small drop of Duy Leal oil on a cookie and gave it to her (RSO is a high potency cannabis extract with high levels of THC as well as other cannabinoids). After eating the cookie she reported feeling tired and "shaky inside". Patient then fell asleep and became difficult to arouse. Daughter reports that her speech was clear, no focal deficits, no seizure activity. She did become mildly confused asking to be taken to [facility] than [facility]. On arrival to the ER patient was hypotensive at 83/55 which rapidly improved with IVF - NSS x 1500mL, BP presently 121/76 ER Course: NSS x 1500 mL, Narcan Allergies Allergy/AdvReac Type Severity Reaction Status Date / Time No Known Allergies Allergy Unverified 05/02/19 22:19 Home Medications Home Medications Medication Instructions Recorded Confirmed Type carbidopa-levodopa [Rytary] 1 cap PO UD 05/02/19 05/02/19 History levothyroxine 0 mcg PO DAILY 05/02/19 05/02/19 History sertraline 50 mg PO DAILY 05/02/19 05/02/19 History Past Med/Surg History Medical History History of hysterectomy Parkinson disease Family History Other No pertinent family history Social History Preferred Language: Thai Feels Safe at Home: Yes Smoking Status: Never smoker Hx Alcohol Use: No Hx Substance Use: Yes (CBD oil and Duy Leal Oil) Review of Systems Review of Systems: Unobtainable due to cognitive status Patient able to deny pain. Does not offer additional response Physical Exam Physical Exam: General: frail, elderly female, NAD, somnolent, briefly opens eyes to verbal command, non-toxic in appearance, AA&O to person, place, responds with a weak whisper Skin: warm, dry, intact, no rashes or lesions HEENT: NC/AT, difficult eye exam, postsurgical pupillary changes bilaterally, irregular shape and unresponsive, anicteric sclera, conjunctiva without injection, external ear normal to inspection and nontender, nares patent, dry mucus membranes, poor dentition, no oropharyngeal lesions, neck supple, trachea midline, no LAD, no thyromegaly, no JVD Heart: +S1/S2, regular, bradycardic, no m/r/g Lungs: equal air entry bilaterally, no rales/rhonchi/wheezes Abd: +BS, soft, NT/ND, no masses/organomegaly/ascites Ext: warm, 2+ pulses in UE/LE bilaterally, no clubbing/cyanosis or edema Neuro: somnolent, minimally responsive to verbal stimuli, Oriented to self and location, moving all extremities on command, diffuse weakness equal bilaterally Results & Data Vital Signs (Past 12 Hours) Vital Signs Temp Pulse Pulse Resp BP BP Pulse Ox 05/02/19 22:16 62 18 121/76 94 05/02/19 21:30 56 L 16 83/55 L 97 05/02/19 20:42 36.7 C 66 16 98/59 L 94 Laboratory Results Lab Results 05/02/19 05/02/19 05/02/19 Range/Units 20:42 20:42 21:48 WBC 3.43 L (4.8-10.8) K/uL RBC 4.10 L (4.2-5.4) M/uL Hgb 13.4 (12.0-16.0) g/dL Hct 37.9 (37-47) % MCV 92.4 (80-100) fL MCH 32.7 (25-34) pg MCHC 35.4 (32-36) g/dL RDW Std Deviation 47.7 H (36.4-46.3) fL RDW Coeff of Isaias 14.1 (11.5-14.5) % Plt Count 145 (130-400) K/uL MPV 11.2 H (7.4-10.4) fL Immature Gran % (Auto) 0.0 % Neut % (Auto) 63.6 % Lymph % (Auto) 26.5 % Bates % (Auto) 9.0 % Eos % (Auto) 0.6 % Baso % (Auto) 0.3 % Immature Gran # (Auto) 0.00 (0.00-0.02) K/uL Neut # (Auto) 2.18 (1.4-6.5) K/uL Lymph # (Auto) 0.91 L (1.2-3.4) K/uL Bates # (Auto) 0.31 (0.11-0.59) K/uL Eos # (Auto) 0.02 (0-0.5) K/uL Baso # (Auto) 0.01 (0-0.2) K/uL Sodium 140 (136-145) mmol/L Potassium 3.9 (3.5-5.1) mmol/L Chloride 105 (98-107) mmol/L Carbon Dioxide 29 (21-32) mmol/L Anion Gap 6.0 (3-11) BUN 14 (7-18) mg/dl Creatinine 0.89 (0.6-1.2) mg/dl Est Cr Clr Drug Dosing 40.5 ml/min Est GFR ( Amer) 69.0 Est GFR (Non-Af Amer) 59.5 BUN/Creatinine Ratio 16.0 (10-20) Glucose 179 H (70-99) mg/dl Lactate 1.8 (0.4-2.0) mmol/L Calcium 8.7 (8.5-10.1) mg/dl Magnesium 2.4 (1.8-2.4) mg/dl Total Bilirubin 0.6 (0.2-1) mg/dl AST 14 L (15-37) U/L ALT 9 L (12-78) U/L Alkaline Phosphatase 51 (45-117) U/L Troponin I < 0.015 (0-0.045) ng/ml Total Protein 6.8 (6.4-8.2) gm/dl Albumin 3.7 (3.4-5.0) gm/dl Globulin 3.1 (2.5-4.0) gm/dl Albumin/Globulin Ratio 1.2 (0.9-2) TSH 1.430 (0.300-4.500) uIu/ml Urine Color Urine Appearance (Clear) Urine pH (4.5-7.5) Ur Specific [place] (1.000-1.030) Urine Protein (Negative) Urine Glucose (UA) (Negative) Urine Ketones (Negative) Urine Blood (Negative) Urine Nitrite (Negative) Urine Bilirubin (Negative) Urine Urobilinogen (Negative) Ur Leukocyte Esterase (Negative) Urine WBC (Auto) (0-5) /hpf Urine RBC (Auto) (0-4) /hpf U Hyaline Cast (Auto) (0-5) /lpf U Epithel Cells (Auto) (0-5) /lpf Urine Bacteria (Auto) (Negative) Ur Renal Epithelial Cell (0-5) /lpf 05/02/19 Range/Units 22:25 WBC (4.8-10.8) K/uL RBC (4.2-5.4) M/uL Hgb (12.0-16.0) g/dL Hct (37-47) % MCV (80-100) fL MCH (25-34) pg MCHC (32-36) g/dL RDW Std Deviation (36.4-46.3) fL RDW Coeff of Isaias (11.5-14.5) % Plt Count (130-400) K/uL MPV (7.4-10.4) fL Immature Gran % (Auto) % Neut % (Auto) % Lymph % (Auto) % Bates % (Auto) % Eos % (Auto) % Baso % (Auto) % Immature Gran # (Auto) (0.00-0.02) K/uL Neut # (Auto) (1.4-6.5) K/uL Lymph # (Auto) (1.2-3.4) K/uL Bates # (Auto) (0.11-0.59) K/uL Eos # (Auto) (0-0.5) K/uL Baso # (Auto) (0-0.2) K/uL Sodium (136-145) mmol/L Potassium (3.5-5.1) mmol/L Chloride (98-107) mmol/L Carbon Dioxide (21-32) mmol/L Anion Gap (3-11) BUN (7-18) mg/dl Creatinine (0.6-1.2) mg/dl Est Cr Clr Drug Dosing ml/min Est GFR ( Amer) Est GFR (Non-Af Amer) BUN/Creatinine Ratio (10-20) Glucose (70-99) mg/dl Lactate (0.4-2.0) mmol/L Calcium (8.5-10.1) mg/dl Magnesium (1.8-2.4) mg/dl Total Bilirubin (0.2-1) mg/dl AST (15-37) U/L ALT (12-78) U/L Alkaline Phosphatase (45-117) U/L Troponin I (0-0.045) ng/ml Total Protein (6.4-8.2) gm/dl Albumin (3.4-5.0) gm/dl Globulin (2.5-4.0) gm/dl Albumin/Globulin Ratio (0.9-2) TSH (0.300-4.500) uIu/ml Urine Color Yellow Urine Appearance Clear (Clear) Urine pH 5.0 (4.5-7.5) Ur Specific [place] 1.018 (1.000-1.030) Urine Protein Negative (Negative) Urine Glucose (UA) Negative (Negative) Urine Ketones Trace H (Negative) Urine Blood Negative (Negative) Urine Nitrite Positive A (Negative) Urine Bilirubin Negative (Negative) Urine Urobilinogen Negative (Negative) Ur Leukocyte Esterase 1+ H (Negative) Urine WBC (Auto) 5-10 H (0-5) /hpf Urine RBC (Auto) 0-4 (0-4) /hpf U Hyaline Cast (Auto) 0 (0-5) /lpf U Epithel Cells (Auto) >30 H (0-5) /lpf Urine Bacteria (Auto) 4+ H (Negative) Ur Renal Epithelial Cell 5-10 H (0-5) /lpf Diagnostic Findings HEAD CT NONCONTRAST CT DOSE: 614.27 mGy.cm HISTORY: Altered mental status. TECHNIQUE: Multiaxial CT images of the head were performed without the use of intravenous contrast. Automated exposure control was utilized for this study. A dose lowering technique was utilized adhering to the principles of ALARA. Comparison: None. Findings: The paranasal sinuses and mastoid air cells are clear. The calvarium and skull base are intact. There is no mass, hematoma, midline shift, acute infarct. White matter hypodensity is nonspecific but suggestive of microvascular ischemic change. The ventricles and sulci demonstrate mild age-related involutional changes. Impression: No acute intracranial abnormality. Atrophy and microvascular ischemic changes. Electronically signed by: Margarito Stack M.D. 05/02/2019 10:19 PM Dictated: 05/02/[id number] Transcribed: 05/02/192215 XR chest 1V portable HISTORY: weakness COMPARISON: None. FINDINGS: No pneumothorax. The heart is mildly enlarged. There is mild central pulmonary vascular congestion without overt edema. Small bibasilar densities. No definite pleural effusion. Low lung volumes. IMPRESSION: 1. Mild cardiomegaly with mild central pulmonary vascular congestion. 2. Low lung volumes with small bibasilar densities. This favors atelectasis. A pneumonia could also have a similar appearance. Electronically signed by: Margarito Stack M.D. 05/02/2019 10:49 PM Dictated: [id number]/[id number] Transcribed: 05/02/192246 ECG Additional Comments: ordered. Code Status & VTE Plan Code Status full VTE Prophylaxis Plan VTE Prophylaxis will be ordered: Yes PG Care Time/CCT Total # of Minutes Spent Total Time Spent with Patient: Total time spent is greater than 50% in coordination of care (as documented) at patient's floor/unit and/or counseling patient: (1) UTI (urinary tract infection) Urinary tract infection type: site unspecified Hematuria presence: without hematuria Qualified Code(s): N39.0 - Urinary tract infection, site not specified (2) Hypotension Hypotension type: unspecified hypotension type Qualified Code(s): I95.9 - Hypotension, unspecified (3) Altered mental status Altered mental status type: somnolence Qualified Code(s): R40.0 - Somnolence
[2019-05-03] MEDS ORDERED: ONDANSETRON INJ 2 MG/ML 2 ML VIAL IV PRN (00:01)
[2019-05-03] MEDS ORDERED: ACETAMINOPHEN 325 MG TAB PO PRN (00:01)
[2019-05-03] MEDS ORDERED: POLYETHYLENE (MIRALAX) 17 GM PACK PO PRN (00:01)
[2019-05-03] MEDS ORDERED: DOCUSATE SODIUM 100 MG CAP PO PRN (00:01)
[2019-05-03] MEDS ORDERED: LACTATED RINGER'S 1,000 ML IV SCH (00:01)
[2019-05-03] MEDS ORDERED: [UNRECOGNIZED DRUG - OTHER] SCH (00:15)
--- NOTE | 2019-05-03 00:19 | Emergency Department Note ---
Entered by Frances Ross acting as a scribe for Renetta Angeles MD History of Present Illness General Chief complaint: Altered Mental Status Source: patient History of Present Illness Onset (ago): minute(s) (just prior to arrival ) Location: head (general ) Pain Consistency: + constant Quality: + other (altered mental status ) Associated symptoms: + weakness and + other (urination urgency) The patient is a 84 year old female who presents to the Emergency Room for a constant altered mental status beginning just prior to arrival. The patient's family states the patient took a "rice-sized" amount of her daughter's THC oil with a cookie and became unresponsive soon after. The patient's family states the THC was not medical marijuana. The patient's family reports the patient has been complaining of weakness and urination urgency. The patient's family states that the patient has a history of Parkinson's Disease. The patient's family reports a change to the patient's medication from Sinemet to Rytary approximately 11 days ago. The patient's family notes uncontrollable flaring and lethargy since the change in medication. The patient's family states the patient's doctor has been varying her dosage recently but they did not notice any change in her state. The patient's family states they almost brought her to the ER four days ago due to her weakness and tiredness. The patient's family denies a history of UTIs, stroke, cardiac history and diabetes. The patient's family states she lives alone in her home. Home Medications Home Medications Medication Instructions Recorded Confirmed Type levothyroxine 50 mcg PO QAM 09/08/18 02/24/19 History buspirone 5 mg tablet 5 mg PO Q8H PRN tab 02/18/19 02/24/19 History cholecalciferol (vitamin D3) 1,000 3,000 units PO DAILY cap 02/18/19 02/24/19 History unit capsule docusate sodium 100 mg capsule 200 mg PO HS cap 02/18/19 02/24/19 History aspirin 81 mg tablet,delayed 81 mg PO DAILY #30 tab 02/26/19 Rx release sertraline 50 mg tablet 25 mg PO .COMPLEX #33 tab 04/05/19 Rx carbidopa ER 48.75 mg-levodopa 195 3 cap PO QID 30 Days #360 cap 04/28/19 Rx mg capsule,extended release carbidopa-levodopa [Rytary] 1 cap PO UD 05/02/19 05/02/19 History levothyroxine 0 mcg PO DAILY 05/02/19 05/02/19 History sertraline 50 mg PO DAILY 05/02/19 05/02/19 History Allergies Allergy/AdvReac Type Severity Reaction Status Date / Time colchicine [From Colcrys] AdvReac FINGER Verified 05/04/19 07:58 NUMBNESS febuxostat [From Uloric] AdvReac FINGER Verified 05/04/19 07:58 NUMBNESS meloxicam AdvReac FINGER Verified 05/04/19 07:58 NUMBNESS Past Med/Surg History Medical History Altered mental status (Acute) Hypotension (Acute) Dehydration (Acute) Medication adverse effect (Acute) Back pain, lumbosacral (Acute) Chronic cerebral ischemia (Acute) Chronic fatigue syndrome (Acute) Complications of immobility (Chronic) Depression (Acute) Elevated blood pressure reading without diagnosis of hypertension (Chronic) Lumbar radiculopathy (Acute) Scoliosis (Chronic) Spinal stenosis (Chronic) Vitamin D deficiency (Acute) Parkinson disease (Chronic) Hypothyroidism History of hysterectomy Parkinson disease Anxiety Nausea and vomiting after administration of anesthetic agent WITH HYSTERECTOMY Surgical History History of hysterectomy History of cataract surgery LEFT History of appendectomy Family History Father Lung cancer Mother Ovarian cancer Brother Carcinoma of pancreas Sister Carcinoma of pancreas Other Family history non-contributory No pertinent family history Social History Preferred Language: Korean Communication Ability: Effective Infant Room Teacher Required: No Beliefs That Will Affect Care: None Current Living Situation: Alone Current Living Situation Comment: APARTMENT ATTACHED TO SON HOME Feels Safe at Home: Yes Smoking Status: Never smoker Second Hand Exposure: No ; Hx Alcohol Use: No Hx Substance Use: No caffeine: Yes Seatbelt Use: always Review of Systems See HPI for pertinent positives & negatives. and A total of 10 systems reviewed and were otherwise negative Physical Exam Vital Signs Vital Signs - 24 hr 05/02/19 20:42 05/02/19 21:30 05/02/19 22:16 Temperature 36.7 C Temperature Source Oral Sepsis Recent Fever Within 48 Hours No Sepsis Action Taken by Nursing No Action Required Pulse Rate 66 Pulse Rate [Apical] 56 L 62 Pulse Rhythm [Apical] Regular Pulse Strength [Apical] Normal Respiratory Rate 16 16 18 Respiratory Effort / Characteristics Non-Labored Spontaneous Respiratory Depth Normal Normal Blood Pressure 98/59 L Blood Pressure [Right Arm] 83/55 L 121/76 Blood Pressure Mean 72 Blood Pressure Mean [Right Arm] 64 91 Pulse Oximetry 94 97 94 Oxygen Delivery Method Room Air Room Air Room Air Vital signs reviewed. General: Well-appearing elderly somnolent female, in no significant distress. Noted to be hypotensive. HEENT: No scleral icterus, PERRLA, neck supple. Atraumatic. Cardiovascular: Regular rate and rhythm, no extra sounds. Pulmonary: Clear to auscultation bilaterally, normal work of breathing. Abdomen: Soft, nontender, nondistended, positive bowel sounds. Musculoskeletal: Atraumatic, no peripheral edema. Neurologic: Somnolent, responds to painful stimuli, resists eyes opening and jaw opening. Skin: Warm, dry, no rash Course 2114: Past medical records reviewed. The patient was evaluated in room B04B. A complete history and physical exam was performed. 2245: Upon reevaluation, I discussed findings and results with the patient's family. They verbalized agreement of the treatment plan. I spoke with Dr. Chauhan of the [facility] Hospitalist Service. The patient will be evaluated for further management and care. Administered Medications Enoxaparin Sodium (Lovenox) 30 mg SQ QAM [facility] Stop: 06/02/19 08:59 Last Admin: 05/04/19 07:38 Dose: 30 mg Documented by: [id number] Admin: 05/03/19 07:40 Dose: 30 mg Documented by: [id number] Ceftriaxone Sodium 1,000 mg/ (Dextrose) 50 mls @ 100 mls/hr IV Q24H [facility]; Protocol Stop: 05/08/19 00:00 Last Infusion: 05/04/19 01:08 Dose: 0 mls/hr Documented by: [id number] Admin: 05/04/19 00:30 Dose: 100 mls/hr Documented by: [id number] Infusion: 05/03/19 01:27 Dose: 0 mls/hr Documented by: [id number] Admin: 05/03/19 00:57 Dose: 100 mls/hr Documented by: [id number] Levothyroxine Sodium (Synthroid) 50 mcg PO DAILYBB [facility] Stop: 06/02/19 06:29 Last Admin: 05/04/19 06:19 Dose: 50 mcg Documented by: [id number] Admin: 05/03/19 06:10 Dose: 50 mcg Documented by: [id number] Rytary~Non-Formulary (Patient's Own Med) 3 ea PO 0730,1700 [facility] Stop: 06/02/19 07:29 Last Admin: 05/04/19 07:37 Dose: 3 cap Documented by: [id number] Admin: 05/03/19 17:09 Dose: 3 cap Documented by: [id number] Admin: 05/03/19 07:39 Dose: 3 cap Documented by: [id number] Rytary~Non-Formulary (Patient's Own Med) 2 ea PO 1130,2030 [facility] Stop: 06/02/19 11:29 Last Admin: 05/04/19 11:31 Dose: 2 cap Documented by: [id number] Admin: 05/03/19 21:07 Dose: 2 cap Documented by: [id number] Admin: 05/03/19 11:07 Dose: 2 cap Documented by: [id number] Sertraline HCl (Zoloft) 50 mg PO DAILY [facility] Stop: 06/02/19 08:59 Last Admin: 05/04/19 07:39 Dose: 50 mg Documented by: [id number] Admin: 05/03/19 07:40 Dose: 50 mg Documented by: [id number] Discontinued Medications Sodium Chloride (Nss 1000ml) 1,000 mls @ 125 mls/hr IV .Q8H [facility] Stop: 05/03/19 00:01 Last Infusion: 05/03/19 06:54 Dose: 0 mls/hr Documented by: [id number] Admin: 05/02/19 21:32 Dose: 125 mls/hr Documented by: [id number] Sodium Chloride (Nss 1000ml) 500 mls @ 999 mls/hr IV .Q31M ONE Stop: 05/02/19 22:12 Last Infusion: 05/02/19 22:22 Dose: 0 mls/hr Documented by: [id number] Admin: 05/02/19 21:52 Dose: 999 mls/hr Documented by: [id number] Lactated Ringer's (Lr) 1,000 mls @ 80 mls/hr IV .[id number] [facility] Stop: 05/03/19 12:30 Last Infusion: 05/03/19 09:12 Dose: 0 mls/hr Documented by: [id number] Admin: 05/03/19 01:30 Dose: 80 mls/hr Documented by: [id number] Miscellaneous (Order Awaiting Action) 1 ea N/A QS [facility] Stop: 06/02/19 00:14 Last Admin: 05/03/19 00:57 Dose: Not Given Documented by: [id number] Naloxone HCl (Narcan) 0.4 mg IV NOW STA Stop: 05/02/19 21:19 Last Admin: 05/02/19 21:42 Dose: 0.4 mg Documented by: [id number] Pneumococcal Polyvalent Vaccine (Pneumovax-23) 25 mcg IM .ONCE ONE Stop: 05/03/19 18:31 Last Admin: 05/03/19 19:21 Dose: Not Given Documented by: [id number] Medical Decision Making Differential Diagnosis Differential Diagnosis includes but is not limited to dehydration, stroke, anemia, hypoglycemia, hyponatremia, hypernatremia, urinary tract infection, pneumonia, bronchitis, sepsis, gastroenteritis, additional abdominal pathology, metabolic abnormalities and infections. Medical Records Attestation: I reviewed the patient's medical records. Home Medications Current Medication List: was personally reviewed by me Laboratory Data Attestation: I reviewed the patient's lab results. Result diagrams: 05/04/19 05:30 05/03/19 05:33 Lab Results 05/02/19 05/02/19 05/02/19 Range/Units 20:42 20:42 21:48 WBC 3.43 L (4.8-10.8) K/uL RBC 4.10 L (4.2-5.4) M/uL Hgb 13.4 (12.0-16.0) g/dL Hct 37.9 (37-47) % MCV 92.4 (80-100) fL MCH 32.7 (25-34) pg MCHC 35.4 (32-36) g/dL RDW Std Deviation 47.7 H (36.4-46.3) fL RDW Coeff of Isaias 14.1 (11.5-14.5) % Plt Count 145 (130-400) K/uL MPV 11.2 H (7.4-10.4) fL Immature Gran % (Auto) 0.0 % Neut % (Auto) 63.6 % Lymph % (Auto) 26.5 % [place] % (Auto) 9.0 % Eos % (Auto) 0.6 % Baso % (Auto) 0.3 % Immature Gran # (Auto) 0.00 (0.00-0.02) K/uL Neut # (Auto) 2.18 (1.4-6.5) K/uL Lymph # (Auto) 0.91 L (1.2-3.4) K/uL [place] # (Auto) 0.31 (0.11-0.59) K/uL Eos # (Auto) 0.02 (0-0.5) K/uL Baso # (Auto) 0.01 (0-0.2) K/uL Sodium 140 (136-145) mmol/L Potassium 3.9 (3.5-5.1) mmol/L Chloride 105 (98-107) mmol/L Carbon Dioxide 29 (21-32) mmol/L Anion Gap 6.0 (3-11) BUN 14 (7-18) mg/dl Creatinine 0.89 (0.6-1.2) mg/dl Est Cr Clr Drug Dosing 40.5 ml/min Est GFR ( Amer) 69.0 Est GFR (Non-Af Amer) 59.5 BUN/Creatinine Ratio 16.0 (10-20) Glucose 179 H (70-99) mg/dl Lactate 1.8 (0.4-2.0) mmol/L Calcium 8.7 (8.5-10.1) mg/dl Magnesium 2.4 (1.8-2.4) mg/dl Total Bilirubin 0.6 (0.2-1) mg/dl AST 14 L (15-37) U/L ALT 9 L (12-78) U/L Alkaline Phosphatase 51 (45-117) U/L Troponin I < 0.015 (0-0.045) ng/ml Total Protein 6.8 (6.4-8.2) gm/dl Albumin 3.7 (3.4-5.0) gm/dl Globulin 3.1 (2.5-4.0) gm/dl Albumin/Globulin Ratio 1.2 (0.9-2) TSH 1.430 (0.300-4.500) uIu/ml Urine Color Urine Appearance (Clear) Urine pH (4.5-7.5) Ur Specific [place] (1.000-1.030) Urine Protein (Negative) Urine Glucose (UA) (Negative) Urine Ketones (Negative) Urine Blood (Negative) Urine Nitrite (Negative) Urine Bilirubin (Negative) Urine Urobilinogen (Negative) Ur Leukocyte Esterase (Negative) Urine WBC (Auto) (0-5) /hpf Urine RBC (Auto) (0-4) /hpf U Hyaline Cast (Auto) (0-5) /lpf U Epithel Cells (Auto) (0-5) /lpf Urine Bacteria (Auto) (Negative) Ur Renal Epithelial Cell (0-5) /lpf 05/02/19 Range/Units 22:25 WBC (4.8-10.8) K/uL RBC (4.2-5.4) M/uL Hgb (12.0-16.0) g/dL Hct (37-47) % MCV (80-100) fL MCH (25-34) pg MCHC (32-36) g/dL RDW Std Deviation (36.4-46.3) fL RDW Coeff of Isaias (11.5-14.5) % Plt Count (130-400) K/uL MPV (7.4-10.4) fL Immature Gran % (Auto) % Neut % (Auto) % Lymph % (Auto) % [place] % (Auto) % Eos % (Auto) % Baso % (Auto) % Immature Gran # (Auto) (0.00-0.02) K/uL Neut # (Auto) (1.4-6.5) K/uL Lymph # (Auto) (1.2-3.4) K/uL [place] # (Auto) (0.11-0.59) K/uL Eos # (Auto) (0-0.5) K/uL Baso # (Auto) (0-0.2) K/uL Sodium (136-145) mmol/L Potassium (3.5-5.1) mmol/L Chloride (98-107) mmol/L Carbon Dioxide (21-32) mmol/L Anion Gap (3-11) BUN (7-18) mg/dl Creatinine (0.6-1.2) mg/dl Est Cr Clr Drug Dosing ml/min Est GFR ( Amer) Est GFR (Non-Af Amer) BUN/Creatinine Ratio (10-20) Glucose (70-99) mg/dl Lactate (0.4-2.0) mmol/L Calcium (8.5-10.1) mg/dl Magnesium (1.8-2.4) mg/dl Total Bilirubin (0.2-1) mg/dl AST (15-37) U/L ALT (12-78) U/L Alkaline Phosphatase (45-117) U/L Troponin I (0-0.045) ng/ml Total Protein (6.4-8.2) gm/dl Albumin (3.4-5.0) gm/dl Globulin (2.5-4.0) gm/dl Albumin/Globulin Ratio (0.9-2) TSH (0.300-4.500) uIu/ml Urine Color Yellow Urine Appearance Clear (Clear) Urine pH 5.0 (4.5-7.5) Ur Specific [place] 1.018 (1.000-1.030) Urine Protein Negative (Negative) Urine Glucose (UA) Negative (Negative) Urine Ketones Trace H (Negative) Urine Blood Negative (Negative) Urine Nitrite Positive A (Negative) Urine Bilirubin Negative (Negative) Urine Urobilinogen Negative (Negative) Ur Leukocyte Esterase 1+ H (Negative) Urine WBC (Auto) 5-10 H (0-5) /hpf Urine RBC (Auto) 0-4 (0-4) /hpf U Hyaline Cast (Auto) 0 (0-5) /lpf U Epithel Cells (Auto) >30 H (0-5) /lpf Urine Bacteria (Auto) 4+ H (Negative) Ur Renal Epithelial Cell 5-10 H (0-5) /lpf Imaging Data Radiologist's Impression: Radiology results as stated below per my review and the radiologist's interpretation: HEAD CT NONCONTRAST CT DOSE: 614.27 mGy.cm HISTORY: Altered mental status. TECHNIQUE: Multiaxial CT images of the head were performed without the use of intravenous contrast. Automated exposure control was utilized for this study. A dose lowering technique was utilized adhering to the principles of ALARA. Comparison: None. Findings: The paranasal sinuses and mastoid air cells are clear. The calvarium and skull base are intact. There is no mass, hematoma, midline shift, acute infarct. White matter hypodensity is nonspecific but suggestive of microvascular ischemic change. The ventricles and sulci demonstrate mild age-related involutional changes. Impression: No acute intracranial abnormality. Atrophy and microvascular ischemic changes. Electronically signed by: Margarito Stack M.D. 05/02/2019 10:19 PM XR chest 1V portable HISTORY: weakness COMPARISON: None. FINDINGS: No pneumothorax. The heart is mildly enlarged. There is mild central pulmonary vascular congestion without overt edema. Small bibasilar densities. No definite pleural effusion. Low lung volumes. IMPRESSION: 1. Mild cardiomegaly with mild central pulmonary vascular congestion. 2. Low lung volumes with small bibasilar densities. This favors atelectasis. A pneumonia could also have a similar appearance. Electronically signed by: Margarito Stack M.D. 05/02/2019 10:49 PM ECG Data Attestation: I personally reviewed and interpreted this ECG as follows: Indication: altered mental status Rate (beats per minute): 66 Rhythm: sinus rhythm Findings: + other (lvh, q waves anteriorly, acute tc of 54m ); no acute ischemic change Blood Pressure Blood Pressure Findings: Elevated blood pressure Blood Pressure Disposition: further management by hospitalist MDM Narrative This pt was evaluated and appeared to be in no distress. Pt was placed on the consulting group analyst and IV access was obtained. IVF were initiated. On PE the pt seemed to respond to sternal rub and resists eye opening, indicating that this is somewhat behavioral. UA is contaminated and questionable for infection. Lab work is otherwise only significant for mild leukopenia. This maybe medication related. CT head is negative for acute process and EKG reveals no acute changes. It seems the oil that was given to the pt is a high potency THC oil. Pt was discussed with the hospitalist service. She will be evaluated for further management. Impression & Plan Altered mental status, Hypotension, Dehydration, Medication adverse effect Discharge Plan Visit Data *Final* Discharge Date/Time: 05/02/19 23:42 Chief Complaint: Altered Mental Status ED Provider: Renetta Angeles Discharge Problem: Altered mental status, Hypotension, Dehydration, Medication adverse effect Patient Disposition: Admitted As Inpatient Discharge Instructions Interventions: ED Discharge Assessment Last Done: 05/02/19 23:42 The scribe's documentation has been prepared under my direction and personally reviewed by me in its entirety. I confirm that the note above accurately ref lects all work, treatment, procedures, and medical decision making performed by me.
[2019-05-03] MEDS: cefTRIAXone SODIUM 1,000 MG in DEXTROSE 5% 50 ML IV SCH (00:57)
[2019-05-03 06:02] LABS: Basophils # (auto) 0.01 K/uL (0-0.2); Basophils % (auto) 0.3 %; Eosinophils # (auto) 0.06 K/uL (0-0.5); Eosinophils % (auto) 1.9 %; Hematocrit (blood only) 35.9 % (37-47); Hemoglobin 12.3 g/dL (12.0-16.0); Lymphocytes # (auto) 1.04 K/uL (1.2-3.4); Lymphocytes % (auto) 33.8 %; Mean Corpuscular Hgb Conc 34.3 g/dL (32-36); Mean Corpuscular Volume 92.1 fL (80-100); Mean Platelet Volume 10.5 fL (7.4-10.4); Monocytes % (auto) 9.7 %; Neutrophils # (auto) 1.67 K/uL (1.4-6.5); Neutrophils % (auto) 54.3 %; Platelet Count 127 K/uL (130-400); RDW Coefficient of Variation 14.2 % (11.5-14.5); RDW Standard Deviation 47.7 fL (36.4-46.3); White Blood Count 3.08 K/uL (4.8-10.8)
[2019-05-03] MEDS: LEVOTHYROXINE SODIUM 50 MCG TABLET PO SCH (06:10)
[2019-05-03 06:37] LABS: BUN Creatinine Ratio 22.5 (10-20); Calcium 8.4 mg/dl (8.5-10.1); Creatinine Clr Calc Pharmacy 52.6 ml/min; Est GFR (African American) 95.5; Est GFR (Non-African American) 82.4
[2019-05-03] MEDS: RYTARY~NON-FORMULARY PATIENT'S OWN MED PO SCH ×4 (07:39→21:07)
[2019-05-03] MEDS: SERTRALINE HCL 50 MG TABLET PO SCH (07:40)
[2019-05-03] MEDS: ENOXAPARIN INJ 30 MG/0.3 ML SYR SQ SCH (07:40)
--- NOTE | 2019-05-03 09:08 | Family Medicine Progress Note ---
Date of Service May 03, 2019 Assessment & Plan (1) UTI (urinary tract infection): 84 yo F with Hx Parkinson's disease and THC consumption presented for AMS, found to be hypotensive and with E.coli UTI, improving on ceftriaxone. UTI - UCx and BCx x2 pending. - currently on ceftriaxone and will deescalate once sensitivities come in. - Encouraged PO hydration. Altered Mental Status - Has resolved since starting antibiotics and increased PO hydration. - Also suspect that the use of marijuana increased her confusion last evening. Have advised the family not to use this in her treatment in the future, and they verbalized understanding. Physical deconditioning - Pt reports feeling weak and having difficulty moving out of bed to use the bathroom, reports "unsteadiness on her feet". - Have placed consult to PT given her complaints of unsteadiness in the setting of an infection and reported weakness even at home. Hypotension - Resolved with fluid bolus. - Adequate PO intake and without signs of dehydration on exam now. - Have encouraged increased PO intake of water both here in hospital and at home. Hx of Parkinson's Disease - continue home carbidopa/levodopa. Depression - Pt has a history of depression for which she takes sertraline. - Reports that as her Parkinson's gets worse she becomes more depressed, and attributes her lack of appetite recently to an increase in her depression. - Will continue home sertraline here in hospital and will scheduled for close follow up with PCP regarding better control of her depression. FEN/GI: PO fluids, normal diet Code: Full Code DVT prophylaxis: Lovenox Disposition: Med/Surg (2) Altered mental status: (3) Hypotension: (4) Physical deconditioning: (5) Dehydration: (6) Parkinson disease: (7) Depression: Supervising Physician Co-Signing Physician Notes I personally examined the patient and verified all corral points of history and exam, discussed case, and agree with decision making with Dr Pineda. Very weak. Drinking well. Urinary frequency. Vitals noted, in general she is awake and alert somewhat fatigued appearing but in no physical distress. She is somewhat slow to respond. HEENT normocephalic atraumatic mucous membranes moist. Breathing unlabored no accessory muscle use good effort. Skin shows no rashes no pallor or icterus. Altered mental statusappears to have been a combination of a few weeks of dehydration (poor oral intake related) compounded by urinary tract infection (gram negatives on culture urinary frequency with symptoms) topped off by adverse reaction to THC/CBD. Fortunately the THC/CBD reaction seems to have worn off, she appears better hydrated and is drinking well, and we are treating the urinary tract infection with ceftriaxone pending final culture results. Discussed that while it was an understandable attempt to try to help alleviate her symptoms, medical marijuana does not appear to be in this particular patient's best interest given her reaction. For her weakness and deconditioning, especially given that this is superimposed on her baseline of Parkinson's and advanced age, PT/OT eval and treat, and discussed with patient and family that she may need some form of rehab placement prior to being able to get back home. DVT prophylaxisLovenox Subjective Pt doing better today regarding mental status. Complaining this AM of "having to pee". Per nursing asked 3 times in a 30 minute period. Otherwise endorses no symptoms of UTI such as dysuria, hematuria, abdominal pain. No subjective fevers or chills. Pt is alert and oriented in the room but sleepy. Review of Systems Constitutional: + weakness; no fever and no chills Respiratory: no cough, no dyspnea and no wheezing Cardiovascular: no chest pain, no palpitations and no edema Gastrointestinal: no abdominal pain, no nausea, no vomiting, no constipation and no diarrhea/loose stools decreased appetite, attributes this to depression. Genitourinary: no dysuria and no hematuria Physical Exam Constitutional: WD/WN, vitals as above Respiratory: normal respiratory effort, lungs clear to auscultation Cardiovascular: RRR, no murmur, no edema Gastrointestinal (Abdomen): normal bowel sounds, soft, nontender, no hepatosplenomegaly no suprapubic tenderness Skin: no rashes, warm and dry Psychiatric: A+Ox3, euthymic affect Results & Data Vital Signs (Past 12 Hours) Vital Signs Temp Pulse Pulse Resp BP BP Pulse Ox 05/03/19 07:09 36.5 C 51 L 19 118/73 96 05/03/19 00:00 35.9 C L 58 L 18 129/73 96 05/02/19 23:42 51 L 14 97/68 L 96 05/02/19 23:30 52 L 8 L 95 05/02/19 22:16 62 18 121/76 94 05/02/19 21:30 56 L 16 83/55 L 97 PG Care Time/CCT Total # of Minutes Spent Total Time Spent with Patient: Total time spent is greater than 50% in coordination of care (as documented) at patient's floor/unit and/or counseling patient: Resident Activity Tracking Resident Involvement: Resident Care Provided Care Provided: Adult Hospital Medicine (1) UTI (urinary tract infection) Hematuria presence: without hematuria Urinary tract infection type: site unspecified Qualified Code(s): N39.0 - Urinary tract infection, site not specified (2) Depression Active/Remission status: remission status unspecified Depression Type: major depressive disorder Major depression recurrence: unspecified whether recurrent Qualified Code(s): F32.9 - Major depressive disorder, single episode, unspecified (3) Altered mental status Altered mental status type: somnolence Qualified Code(s): R40.0 - Somnolence (4) Hypotension Hypotension type: unspecified hypotension type Qualified Code(s): I95.9 - Hypotension, unspecified
[2019-05-03] MEDS ORDERED: PNEUMOCOCCAL ADMINISTRATION CHARGE ONE (18:30)
[2019-05-03] MEDS ORDERED: PNEUMOCOCCAL POLYSACCHARIDES 25 MCG/0.5 ML VIAL/SYR IM ONE (18:30)
[2019-05-04] MEDS: cefTRIAXone SODIUM 1,000 MG in DEXTROSE 5% 50 ML IV SCH (00:30)
[2019-05-04 05:59] LABS: Basophils # (auto) 0.02 K/uL (0-0.2); Basophils % (auto) 0.6 %; Eosinophils # (auto) 0.06 K/uL (0-0.5); Eosinophils % (auto) 1.8 %; Hemoglobin 12.4 g/dL (12.0-16.0); Immature Granulocytes # (auto) 0.01 K/uL (0.00-0.02); Immature Granulocytes % (auto) 0.3 %; Lymphocytes # (auto) 1.15 K/uL (1.2-3.4); Lymphocytes % (auto) 34.7 %; Mean Corpuscular Hgb Conc 34.4 g/dL (32-36); Mean Corpuscular Volume 92.8 fL (80-100); Mean Platelet Volume 10.5 fL (7.4-10.4); Monocytes # (auto) 0.29 K/uL (0.11-0.59); Monocytes % (auto) 8.8 %; Neutrophils # (auto) 1.78 K/uL (1.4-6.5); Neutrophils % (auto) 53.8 %; Nucleated RBC # (auto) 0.03 K/uL (0-0); Platelet Count 129 K/uL (130-400); RDW Coefficient of Variation 14.2 % (11.5-14.5); Red Blood Count 3.88 M/uL (4.2-5.4); White Blood Count 3.31 K/uL (4.8-10.8)
[2019-05-04] MEDS: LEVOTHYROXINE SODIUM 50 MCG TABLET PO SCH (06:19)
[2019-05-04] MEDS: RYTARY~NON-FORMULARY PATIENT'S OWN MED PO SCH ×3 (07:37→17:12)
[2019-05-04] MEDS: ENOXAPARIN INJ 30 MG/0.3 ML SYR SQ SCH (07:38)
[2019-05-04] MEDS: SERTRALINE HCL 50 MG TABLET PO SCH (07:39)
--- NOTE | 2019-05-04 10:25 | Family Medicine Progress Note ---
Date of Service May 04, 2019 Assessment & Plan (1) UTI (urinary tract infection): 84 yo F with Hx Parkinson's disease and THC consumption presented for AMS, found to be hypotensive and with E.coli UTI, improving on ceftriaxone. UTI - UCx sensitive to Bactrim, Macrobid, Keflex - - Encouraged PO hydration. Altered Mental Status - Has resolved since starting antibiotics and increased PO hydration. - Also suspect that the use of marijuana increased her confusion last evening. Have advised the family not to use this in her treatment in the future, and they verbalized understanding. Physical deconditioning - Pt reports feeling weak and having difficulty moving out of bed to use the bathroom, reports "unsteadiness on her feet". - Have placed consult to PT given her complaints of unsteadiness in the setting of an infection and reported weakness even at home. - May require inpatient rehab pending PT evaluation. Hypotension - Resolved with fluid bolus. - No signs of dehydration on exam. - Have encouraged increased PO intake of water both here in hospital and at home. Hx of Parkinson's Disease - continue home carbidopa/levodopa. Depression - Pt has a history of depression for which she takes sertraline. - Reports that as her Parkinson's gets worse she becomes more depressed, and attributes her lack of appetite recently to an increase in her depression. - Will continue home sertraline here in hospital and will scheduled for close follow up with PCP regarding better control of her depression. FEN/GI: PO fluids, normal diet Code: Full Code DVT prophylaxis: Lovenox Disposition: Med/Surg (2) Dehydration: (3) Parkinson disease: (4) Physical deconditioning: (5) Hypotension: (6) Depression: Subjective Pt doing well today, AAOx3 this morning, per nursing still having to urinate frequently but no complaints of dysuria, hematuria. Had breakfast, no abdominal pain nausea or vomiting. No fevers or chills. Review of Systems Constitutional: no fever and no chills Respiratory: no cough, no chest congestion, no dyspnea and no wheezing Cardiovascular: no chest pain, no palpitations and no edema Gastrointestinal: no abdominal pain, no vomiting and no constipation no BM since arrival. Genitourinary: + urinary frequency; no dysuria and no hematuria Physical Exam Constitutional: WD/WN, vitals as above Respiratory: normal respiratory effort, lungs clear to auscultation Cardiovascular: RRR, no murmur, no edema Gastrointestinal (Abdomen): normal bowel sounds, soft, nontender, no hepatosplenomegaly Skin: no rashes, warm and dry Psychiatric: A+Ox3, euthymic affect Results & Data Vital Signs (Past 12 Hours) Vital Signs Temp Pulse Resp BP Pulse Ox 05/04/19 07:00 36.6 C 57 L 18 117/79 95 PG Care Time/CCT Total # of Minutes Spent Total Time Spent with Patient: Total time spent is greater than 50% in coordination of care (as documented) at patient's floor/unit and/or counseling patient: Resident Activity Tracking Resident Involvement: Resident Care Provided Care Provided: Adult Hospital Medicine (1) UTI (urinary tract infection) Hematuria presence: without hematuria Urinary tract infection type: site unspecified Qualified Code(s): N39.0 - Urinary tract infection, site not specified (2) Depression Active/Remission status: remission status unspecified Depression Type: major depressive disorder Major depression recurrence: unspecified whether recurrent Qualified Code(s): F32.9 - Major depressive disorder, single episode, unspecified (3) Hypotension Hypotension type: unspecified hypotension type Qualified Code(s): I95.9 - Hypotension, unspecified
--- NOTE | 2019-05-04 17:18 | Discharge Summary ---
Date of Service May 04, 2019 Admission HPI Per Admitting Provider Yraelis Luna is an 84-year-old female with history of Parkinson's disease presenting with altered mental status. Patient is somnolent, unable to provide details of events. History obtained through chart review and discussion with patient's daughters. Daughter reports that the patient has been having increased fatigue and weakness over the last 2 weeks as well as poor appetite and p.o. intake. Last Friday she was told that she was dehydrated by her niece who is a nurse and instructed to drink more water. At 1630 this evening the patient took her evening dose of carbidopa levodopa. After which she felt that "her feet had Velcro" and were sticking to the floor. She was having difficulty rising from a chair. At 18:00 the patient's daughter gave her some CBD oil as well as a small drop of Duy Leal oil on a cookie and gave it to her (RSO is a high potency cannabis extract with high levels of THC as well as other cannabinoids). After eating the cookie she reported feeling tired and "shaky inside". Patient then fell asleep and became difficult to arouse. Daughter reports that her speech was clear, no focal deficits, no seizure activity. She did become mildly confused asking to be taken to [facility] rather than [facility]. On arrival to the ER patient was hypotensive at 83/55 which rapidly improved with IVF - NSS x 1500mL, BP presently 121/76 ER Course: NSS x 1500 mL, Narcan Admission Exam Per Admitting Provider General: frail, elderly female, NAD, somnolent, briefly opens eyes to verbal command, non-toxic in appearance, AA&O to person, place, responds with a weak whisper Skin: warm, dry, intact, no rashes or lesions HEENT: NC/AT, difficult eye exam, postsurgical pupillary changes bilaterally, irregular shape and unresponsive, anicteric sclera, conjunctiva without injection, external ear normal to inspection and nontender, nares patent, dry mucus membranes, poor dentition, no oropharyngeal lesions, neck supple, trachea midline, no LAD, no thyromegaly, no JVD Heart: +S1/S2, regular, bradycardic, no m/r/g Lungs: equal air entry bilaterally, no rales/rhonchi/wheezes Abd: +BS, soft, NT/ND, no masses/organomegaly/ascites Ext: warm, 2+ pulses in UE/LE bilaterally, no clubbing/cyanosis or edema Neuro: somnolent, minimally responsive to verbal stimuli, Oriented to self and location, moving all extremities on command, diffuse weakness equal bilaterally Principal Diagnosis UTI Discharge Exam Constitutional WD/WN, vitals as above Respiratory normal respiratory effort, lungs clear to auscultation Cardiovascular RRR, no murmur, no edema Gastrointestinal (Abdomen) normal bowel sounds, soft, nontender, no hepatosplenomegaly Skin no rashes, warm and dry Psychiatric A+Ox3, euthymic affect Discharge Data Allergies Allergy/AdvReac Type Severity Reaction Status Date / Time colchicine [From Colcrys] AdvReac FINGER Verified 05/04/19 07:58 NUMBNESS febuxostat [From Uloric] AdvReac FINGER Verified 05/04/19 07:58 NUMBNESS meloxicam AdvReac FINGER Verified 05/04/19 07:58 NUMBNESS Consultations 05/02/19 22:52 ED Decision to Admit Stat Ordered Studies 05/02/19 21:18 CT head/brain wo con Stat Hospital Course (1) UTI (urinary tract infection): 84 yo F with Hx Parkinson's disease and THC consumption presented for AMS, found to be hypotensive and with E.coli UTI, improving on ceftriaxone and ready for discharge home. UTI - Pt was admitted for dehydration and confusion, found to have UTI E. coli sensitive to ceftriaxone. Sensitivities done and switched to cefdinir 300mg BID PO for 7 days following discharge. - Have educated patient and family on hydration and importance of completing her antibiotic course. Altered Mental Status - Has resolved since starting antibiotics and increased PO hydration. - Have educated the family on not using marijuana as a possible treatment for their mother given her bad reaction this time in the setting of Parkinson's disease. Physical deconditioning - Pt will have home PT established upon return home. Hypotension - Resolved with fluid bolus, encouraged at least 60oz of water consumption daily to prevent dehydration at home. Hx of Parkinson's Disease - continue home carbidopa/levodopa. Depression - Pt has a history of depression for which she takes sertraline. - Have provided her with 30 days of her home sertraline and will have nurse manager nicu scheduled PCP appointment. Dispo is home with home care services in the form of PT. (2) Altered mental status: (3) Dehydration: (4) Hypotension: (5) Parkinson disease: Total Time Total Time Spent Total Time Spent (In Minutes): <30 minutes Discharge Plan Discharge Items Patient Disposition: Home - Home Health Services Reason For Visit: ALTERED MENTAL STATUS Discharge Diagnosis: Urinary Tract Infection, Dehydration Discharge Goals: Improve function and Prevent disease Activity: Resume your previous activity Non-emergency contact: Primary Care Provider Call non-emergency contact if: you have any medication questions, your symptoms worsen and your temperature is above 100.5 Follow-up/Referrals: Carlito Plummer MD [Primary Care Provider] - 05/11/19 3:15 pm (Please, follow up at Dr. Carlito Plummer on FridayMay 11 at 3:15 pm. *If you need to change this appointment, call the office at [phone].) Diet: Regular Addtl Provider Instructions: You were admitted to the hospital for confusion and dehydration and you were found to have a urinary tract infection. We gave you fluids and started antibiotics to treat your infection and you started to get better. We also determined that you were likely also confused because of the marijuana you consumed. Today we feel comfortable sending you home with home physical therapy to come see you. Please find below instructions for your medications going forward. 1) You are having sent to your house prescription for an antibiotic called Cefdinir. You will take the Cefdinir 300mg twice a day for seven days to clear your bladder infection. 2) You will be contacted by care management regarding scheduling you for physical therapy at home. This is important to make sure you get your strength back after being in the hospital. 3) Our nurse manager nicu will get you set up for an appointment with your family doctor Dr. Plummer within 7 days. 4) It is important that you try to drink at least 60 ounces (3 of your large [place] mugs) of water a day. This will keep you hydrated and help with your weakness and help prevent future bladder infections. 5) I have given you one month supply of your sertraline for depression as you have been taking it in the hospital. Please ensure that you are not doubling up on this medication at home. You should be taking sertraline 50mg daily. At your appointment with Dr. Plummer please discuss further your depression and anxiety and at that time he may decide to change your medications. 6) If you start to develop fevers or chills, confusion, or are not able to drink anything for a few days please seek medical care. Prescriptions: New sertraline 50 mg Tablet 50 mg PO DAILY Qty: 30 RF: 0 cefdinir 300 mg capsule 300 mg PO BID 7 Days Qty: 14 RF: 0 Continued aspirin 81 mg tablet,delayed release (DR/EC) 81 mg PO DAILY Qty: 30 RF: 2 carbidopa-levodopa 48.75-195 mg capsule, extended release 3 cap PO QID 30 Days Qty: 360 RF: 5 carbidopa-levodopa [Rytary] 48.75-195 mg capsule, extended release RF: 0 cholecalciferol (vitamin D3) 1,000 unit capsule 3,000 units PO DAILY RF: 0 levothyroxine 25 mcg Tablet PO DAILY RF: 0 Rytary 48.75-195 mg Capsule, Extended Release 1 cap PO UD RF: 0 levothyroxine 50 mcg Tablet 50 mcg PO QAM RF: 0 buspirone 5 mg tablet 5 mg PO Q8H PRN (Reason: Anxiety) RF: 0 docusate sodium [Stool Softener] 100 mg capsule 200 mg PO HS RF: 0 Discontinued sertraline 50 mg tablet 25 mg PO .COMPLEX Qty: 33 RF: 5 sertraline 50 mg Tablet 50 mg PO DAILY RF: 0 Stand-Alone Forms: [facility]/Other Patient Handouts: Sertraline Hydrochloride Oral tablet Discharge Orders: Discharge Order (Routine); Ordered 05/04/19 Ordered By: Brooke Pineda Admission Data Admit Date/Time: 05/02/19 23:19 Attending Provider: Ugo Simon Admit Provider: Leena Chauhan Primary Care Provider: Carlito Plummer Other Providers: Leena Chauhan ; Lary Burciaga Service: Medical Supervising Physician Co-Signing Physician Notes I personally examined the patient and verified all corral points of history and exam, discussed case, and agree with decision making with Dr Pineda. Feeling weak, but better than yesterday. Feels that she would be able to go home. Discussed hydration and further treatment of UTI. Vitals noted, in general she is awake and alert somewhat fatigued appearing but in no physical distress. She is somewhat slow to respond. HEENT normocephalic atraumatic mucous membranes moist. Breathing unlabored no accessory muscle use good effort. Skin shows no rashes no pallor or icterus. Altered mental statusappears to have been a combination of a few weeks of dehydration (poor oral intake related) compounded by urinary tract infection (gram negatives on culture urinary frequency with symptoms) topped off by adverse reaction to THC/CBD. Hydrated, safe to switch to oral antibiotics, safe for home. Close PCP follow-up. Otherwise as above. Discussed maintaining adequate hydration with at least 60 ounces of fluids daily. DVT prophylaxisLovenox utilized during her stay Resident Activity Tracking Resident Involvement: Resident Care Provided Care Provided: Adult Hospital Medicine
== END 2019-05-04 19:30 | disposition home health service (06) ==
LOC: ED 20:33 → 4W 20:33 → MERGE 23:19 → SUATTDRO 23:19 → 4W 23:42